=== PATIENT | male | born 1955 | race African-American/Black ===

== ENCOUNTER 2019-03-04 12:27 | Inpatient (IN) | payer MEDICARE, MEDICAID ==
[~2019-03-04] VITALS: Ht 172.7 cm; Wt 78.9 kg
[2019-03-04] MEDS ORDERED: MIRT15TA PO (12:48)
[2019-03-04] MEDS ORDERED: METF-815 PO (12:48)
[2019-03-04] MEDS ORDERED: ALBU18HF2 IH (12:48)
[2019-03-04] MEDS ORDERED: ATOR20TA PO (12:48)
[2019-03-04] MEDS ORDERED: GABA800T97 PO (12:48)
[2019-03-04] MEDS ORDERED: SODIUM CHLORIDE 0.9% 1000ML BAG (SEPSIS BOLUS) IV ONE (13:00)
[2019-03-04] MEDS ORDERED: ALBUTEROL (0.083%) 2.5MG/3ML NEB HHN STA (13:23)
[2019-03-04] MEDS ORDERED: IPRATROPIUM BROMIDE (0.02%) 0.5MG/2.5ML NEB HHN STA (13:23)
[2019-03-04 13:28] LABS: HEMATOCRIT. 39.1 % (42.0-52.0); HEMOGLOBIN. 12.7 g/dL (14.0-18.0); MEAN CORPUSCULAR HEMOGLOBIN 27.4 pg (28.0-32.0); MEAN CORPUSCULAR VOLUME 84.6 fL (80.0-94.0); PLATELET 419 x1000/uL (130-400); RED BLOOD CELL COUNT 4.62 mill/uL (4.7-6.1); RED CELL DISTRIBUTION WIDTH 19.8 % (11.6-14.6)
[2019-03-04 13:34] LABS: CHLORIDE 100 mEq/L (98-107)
[2019-03-04 13:35] LABS: INR 1.2; PROTHROMBIN TIME 12.3 sec (9.6-11.0)
[2019-03-04 13:39] LABS: ETHANOL BLOOD < 10 mg/dL
[2019-03-04] MEDS ORDERED: VANCOMYCIN 1 G PREMIX 200 ML IV ONE (14:00)
[2019-03-04] MEDS ORDERED: PIPERACILLIN/TAZ 3.375G PREMIX 50 ML IV ONE (14:00)
[2019-03-04 14:06] LABS: CLARITY URINE CLEAR (CLEAR); COLOR URINE DARK YELLOW (YELLOW); KETONES URINE 1+ (NEGATIVE); LEUKOCYTE ESTERASE URINE 1+ (NEGATIVE); NITRITE URINE NEGATIVE (NEGATIVE); OCCULT BLOOD URINE NEGATIVE (NEGATIVE); PROTEIN URINE TRACE (NEGATIVE); SPECIFIC GRAVITY URINE 1.016 (1.005-1.030)
[2019-03-04 14:22] LABS: PLATELET ESTIMATE SLIGHTLY INCREASED
[2019-03-04] MEDS: DEXT 5%/0.45% NACL 1000ML 1,000 ML IV SCH (15:30)
[2019-03-04] MEDS ORDERED: PIPERACILLIN/TAZOBACTAM 3.375 G in DEXT 5% WATER 100 ML IV SCH (15:30)
[2019-03-05] VITALS (8 sets, daily range): BP systolic 97–121; BP diastolic 59–81
[2019-03-05 10:00] LABS: HEMATOCRIT. 35.4 % (42.0-52.0); HEMOGLOBIN. 11.5 g/dL (14.0-18.0); MEAN CORPUSCULAR HEMOGLOBIN 27.5 pg (28.0-32.0); MEAN CORPUSCULAR VOLUME 84.5 fL (80.0-94.0); MEAN PLATELET VOLUME 8.1 fl (7.4-10.4); PLATELET 413 x1000/uL (130-400); RED BLOOD CELL COUNT 4.18 mill/uL (4.7-6.1); RED CELL DISTRIBUTION WIDTH 19.6 % (11.6-14.6)
[2019-03-05 10:25] LABS: CHLORIDE 104 mEq/L (98-107)
[2019-03-05 10:41] LABS: *COCAINE SCREEN URINE NEGATIVE (NEGATIVE)
[2019-03-05 10:42] LABS: *AMPHETAMINES SCREEN URINE NEGATIVE (NEGATIVE); *BARBITURATES SCREEN URINE NEGATIVE (NEGATIVE); CANNABINOID URINE SCREEN NEGATIVE (NEGATIVE); METHADONE URINE SCREEN NEGATIVE (NEGATIVE); OPIATES URINE SCREEN NEGATIVE (NEGATIVE); PHENCYCLIDINE URINE SCREEN NEGATIVE (NEGATIVE)
[2019-03-05 10:43] LABS: *BENZODIAZEPINES SCREEN URINE NEGATIVE (NEGATIVE)
[2019-03-05] MEDS ORDERED: PIPERACILLIN/TAZOBACTAM 3.375 G in DEXT 5% WATER 100 ML IV SCH (11:00)
[2019-03-05 13:00] LABS: PLATELET ESTIMATE INCREASED
[2019-03-05] MEDS ORDERED: APIXABAN 5 MG TABLET PO SCH (13:00)
[2019-03-05] MEDS: APIXABAN 5 MG TABLET PO SCH ×2 (13:40→21:10)
[2019-03-05] MEDS: DEXT 5%/0.45% NACL 1000ML 1,000 ML IV SCH (13:41)
[2019-03-05] MEDS: MORPHINE SULFATE 2 MG/ML CPJ (NOT FOR IM USE) IV PRN (13:55)
[2019-03-05] MEDS ORDERED: THEOPHYLLINE ANHYDROUS 80 MG/15 ML 120ML PO SCH ×2 (14:00)
[2019-03-05] MEDS: CEFEPIME 1,000 MG in DEXTROSE 5% WATER 50 ML IV SCH (16:44)
[2019-03-05] MEDS: THEOPHYLLINE ANHYDROUS 80 MG/15 ML 120ML PO SCH ×2 (16:45→21:00)
[2019-03-05] MEDS: METRONIDAZOLE 500 MG PREMIX 100 ML IV SCH (17:50)
[2019-03-05] MEDS: IPRATROPIUM/ALBUTEROL 0.5-3(2.5)MG/3ML NEB HHN PRN (18:17)
[2019-03-06] VITALS (12 sets, daily range): BP systolic 90–113; BP diastolic 52–70
[2019-03-06] MEDS: THEOPHYLLINE ANHYDROUS 80 MG/15 ML 120ML PO SCH ×7 (00:13→22:08)
[2019-03-06] MEDS: ACETYLCYSTEINE 100MG/ML 10% VIAL 4ML INH SCH ×2 (00:31→15:19)
[2019-03-06] MEDS: METRONIDAZOLE 500 MG PREMIX 100 ML IV SCH ×3 (00:55→19:16)
[2019-03-06] MEDS: DEXT 5%/0.45% NACL 1000ML 1,000 ML IV SCH ×3 (03:05→20:13)
[2019-03-06] MEDS: CEFEPIME 1,000 MG in DEXTROSE 5% WATER 50 ML IV SCH ×2 (03:09→16:53)
[2019-03-06 06:49] LABS: HEMATOCRIT. 32.6 % (42.0-52.0); HEMOGLOBIN. 10.8 g/dL (14.0-18.0); MEAN CORPUSCULAR HEMOGLOBIN 27.7 pg (28.0-32.0); MEAN CORPUSCULAR VOLUME 83.7 fL (80.0-94.0); MEAN PLATELET VOLUME 8.1 fl (7.4-10.4); PLATELET 372 x1000/uL (130-400); RED CELL DISTRIBUTION WIDTH 19.5 % (11.6-14.6)
[2019-03-06] MEDS: APIXABAN 5 MG TABLET PO SCH ×2 (09:13→20:12)
[2019-03-06] MEDS: MORPHINE SULFATE 2 MG/ML CPJ (NOT FOR IM USE) IV PRN (09:14)
[2019-03-06] MEDS: IPRATROPIUM/ALBUTEROL 0.5-3(2.5)MG/3ML NEB HHN PRN (09:16)
[2019-03-06 10:54] LABS: PLATELET ESTIMATE NORMAL
[2019-03-06] MEDS ORDERED: [UNRECOGNIZED DRUG - CODE] MT (10:59)
[2019-03-06] MEDS ORDERED: ACETYLCYSTEINE 100MG/ML 10% VIAL 4ML INH SCH (14:00)
[2019-03-06 16:16] LABS: BG CARBOXYHEMOGLOBIN 0.3 % (0.5-1.5); BG DEOXYHEMOGLOBIN 7.7 % (0.0-5.0); BG FRACTION INSPIRED OXYGEN 21; BG METHEMOGLOBIN 0.1 % (0.0-1.5); BG OXYGEN SATURATION 92.3 % (92.0-98.5); BG OXYHEMOGLOBIN 91.9 % (94.0-97.0); BG PCO2 38.8 mmHg (35.0-45.0); BG PH 7.371 (7.350-7.450); BG PO2 66.1 mmHg (75.0-100.0); BG SAMPLE SITE RIGHT RADIAL; BG TOTAL HEMOGLOBIN 11.4 g/dL (12.0-18.0); BG VENT MODE ROOM AIR
[2019-03-07] VITALS (13 sets, daily range): BP systolic 86–106; BP diastolic 43–62
[2019-03-07] MEDS: METRONIDAZOLE 500 MG PREMIX 100 ML IV SCH ×3 (01:46→18:24)
[2019-03-07] MEDS: CEFEPIME 1,000 MG in DEXTROSE 5% WATER 50 ML IV SCH ×2 (03:01→16:06)
[2019-03-07] MEDS: THEOPHYLLINE ANHYDROUS 80 MG/15 ML 120ML PO SCH ×6 (03:01→23:10)
[2019-03-07] MEDS: MORPHINE SULFATE 2 MG/ML CPJ (NOT FOR IM USE) IV PRN (03:39)
[2019-03-07 07:31] LABS: HEMATOCRIT. 32.7 % (42.0-52.0); HEMOGLOBIN. 10.6 g/dL (14.0-18.0); MEAN CORPUSCULAR HEMOGLOBIN 27.2 pg (28.0-32.0); MEAN CORPUSCULAR VOLUME 83.9 fL (80.0-94.0); MEAN PLATELET VOLUME 8.3 fl (7.4-10.4); PLATELET 414 x1000/uL (130-400); RED CELL DISTRIBUTION WIDTH 19.1 % (11.6-14.6)
[2019-03-07] MEDS: APIXABAN 5 MG TABLET PO SCH ×2 (10:01→21:13)
[2019-03-07] MEDS: IPRATROPIUM/ALBUTEROL 0.5-3(2.5)MG/3ML NEB HHN SCH ×3 (10:14→20:54)
[2019-03-07] MEDS: DEXT 5%/0.45% NACL 1000ML 1,000 ML IV SCH (11:33)
[2019-03-07 13:32] LABS: PLATELET ESTIMATE INCREASED
[2019-03-07] MEDS: DEXT 5%/0.45% NACL KCL 20MEQ/L 1,000 ML IV SCH (18:46)
[2019-03-07 23:39] LABS: CLARITY URINE CLEAR (CLEAR); COLOR URINE YELLOW (YELLOW); KETONES URINE NEGATIVE (NEGATIVE); LEUKOCYTE ESTERASE URINE NEGATIVE (NEGATIVE); NITRITE URINE NEGATIVE (NEGATIVE); OCCULT BLOOD URINE NEGATIVE (NEGATIVE); PH URINE 5.5 (4.5-8.0); PROTEIN URINE NEGATIVE (NEGATIVE); SPECIFIC GRAVITY URINE 1.006 (1.005-1.030); UROBILINOGEN URINE 0.2 E.U./dL (0.2-1.0)
[2019-03-08] VITALS (16 sets, daily range): BP systolic 87–128; BP diastolic 41–80
[2019-03-08] MEDS: IPRATROPIUM/ALBUTEROL 0.5-3(2.5)MG/3ML NEB HHN SCH ×6 (00:31→19:54)
[2019-03-08] MEDS: ACETYLCYSTEINE 100MG/ML 10% VIAL 4ML INH SCH ×3 (00:50→15:53)
[2019-03-08] MEDS: DEXT 5%/0.45% NACL KCL 20MEQ/L 1,000 ML IV SCH ×3 (01:58→18:13)
[2019-03-08] MEDS: ACETAMINOPHEN 325MG TABLET PO PRN (01:58)
[2019-03-08] MEDS: METRONIDAZOLE 500 MG PREMIX 100 ML IV SCH ×3 (01:58→18:13)
[2019-03-08] MEDS: THEOPHYLLINE ANHYDROUS 80 MG/15 ML 120ML PO SCH ×6 (02:03→23:44)
[2019-03-08] MEDS: APIXABAN 5 MG TABLET PO SCH ×2 (10:09→20:53)
[2019-03-08] MEDS: MORPHINE SULFATE 2 MG/ML CPJ (NOT FOR IM USE) IV PRN (11:30)
[2019-03-08 11:36] LABS: HEMATOCRIT. 32.5 % (42.0-52.0); HEMOGLOBIN. 10.9 g/dL (14.0-18.0); MEAN CORPUSCULAR HEMOGLOBIN 27.7 pg (28.0-32.0); MEAN CORPUSCULAR VOLUME 82.6 fL (80.0-94.0); MEAN PLATELET VOLUME 8.1 fl (7.4-10.4); PLATELET 408 x1000/uL (130-400); RED BLOOD CELL COUNT 3.93 mill/uL (4.7-6.1); RED CELL DISTRIBUTION WIDTH 19.2 % (11.6-14.6)
[2019-03-08] MEDS ORDERED: POTASSIUM CHLORIDE 20MEQ/PACKET PO NR (12:45)
[2019-03-08 14:18] LABS: PLATELET ESTIMATE SLIGHTLY INCREASED
[2019-03-08] MEDS ORDERED: CEFEPIME 1,000 MG in DEXTROSE 5% WATER 50 ML IV SCH (16:00)
[2019-03-08] MEDS: ONDANSETRON HCL 4MG/2ML INJ IV PRN (21:04)
[2019-03-09] VITALS (12 sets, daily range): BP systolic 87–131; BP diastolic 46–88
[2019-03-09] MEDS: IPRATROPIUM/ALBUTEROL 0.5-3(2.5)MG/3ML NEB HHN SCH ×7 (00:09→20:51)
[2019-03-09] MEDS: ACETYLCYSTEINE 100MG/ML 10% VIAL 4ML INH SCH ×4 (00:09→16:12)
[2019-03-09] MEDS: ACETAMINOPHEN 325MG TABLET PO PRN (00:22)
[2019-03-09] MEDS: METRONIDAZOLE 500 MG PREMIX 100 ML IV SCH ×2 (01:35→09:37)
[2019-03-09] MEDS: DEXT 5%/0.45% NACL KCL 20MEQ/L 1,000 ML IV SCH ×3 (01:35→22:51)
[2019-03-09] MEDS: THEOPHYLLINE ANHYDROUS 80 MG/15 ML 120ML PO SCH ×5 (03:00→22:52)
[2019-03-09] MEDS: ONDANSETRON HCL 4MG/2ML INJ IV PRN ×3 (03:20→20:33)
[2019-03-09 08:09] LABS: HEMATOCRIT. 29.7 % (42.0-52.0); HEMOGLOBIN. 9.8 g/dL (14.0-18.0); MEAN CORPUSCULAR HEMOGLOBIN 27.6 pg (28.0-32.0); MEAN CORPUSCULAR VOLUME 83.3 fL (80.0-94.0); MEAN PLATELET VOLUME 7.8 fl (7.4-10.4); RED BLOOD CELL COUNT 3.56 mill/uL (4.7-6.1); RED CELL DISTRIBUTION WIDTH 19.7 % (11.6-14.6)
[2019-03-09 09:10] LABS: *CREATININE RANDOM URINE 100.4 mg/dL (Not Estab.); MICROALBUMIN RANDOM URINE 8.5 ug/mL (Not Estab.)
[2019-03-09] MEDS: APIXABAN 5 MG TABLET PO SCH ×2 (09:37→21:00)
[2019-03-09] MEDS ORDERED: APIX5TAB PO (12:22)
[2019-03-09 12:32] LABS: PLATELET ESTIMATE NORMAL
[2019-03-09 12:33] LABS: PLATELET 388 x1000/uL (130-400)
[2019-03-09] MEDS ORDERED: OMEPRAZOLE 20MG CAPSULE EXTENDED RELEASE PO SCH (17:00)
[2019-03-09] MEDS ORDERED: SODIUM CHLORIDE 0.9% 500 ML IV ONE ×2 (19:10→19:20)
[2019-03-09] MEDS: MORPHINE SULFATE 2 MG/ML CPJ (NOT FOR IM USE) IV PRN (20:19)
[2019-03-09 22:11] LABS: HEMATOCRIT. 32.9 % (42.0-52.0); MEAN CORPUSCULAR HEMOGLOBIN 27.8 pg (28.0-32.0); MEAN PLATELET VOLUME 7.7 fl (7.4-10.4); PLATELET 404 x1000/uL (130-400); RED BLOOD CELL COUNT 3.96 mill/uL (4.7-6.1); RED CELL DISTRIBUTION WIDTH 20.1 % (11.6-14.6)
[2019-03-09] MEDS: PANTOPRAZOLE 80 MG in SODIUM CHLORIDE 0.9% 100 ML IV SCH (22:50)
[2019-03-09 23:24] LABS: PLATELET ESTIMATE NORMAL
[2019-03-10] VITALS (12 sets, daily range): BP systolic 82–130; BP diastolic 46–68
[2019-03-10] MEDS: IPRATROPIUM/ALBUTEROL 0.5-3(2.5)MG/3ML NEB HHN SCH ×5 (04:50→20:58)
[2019-03-10] MEDS: DEXT 5%/0.45% NACL KCL 20MEQ/L 1,000 ML IV SCH ×2 (05:12→16:35)
[2019-03-10] MEDS: THEOPHYLLINE ANHYDROUS 80 MG/15 ML 120ML PO SCH ×2 (05:21→06:34)
[2019-03-10 07:11] LABS: HEMATOCRIT. 30.1 % (42.0-52.0); HEMOGLOBIN. 9.9 g/dL (14.0-18.0); MEAN CORPUSCULAR HEMOGLOBIN 27.7 pg (28.0-32.0); MEAN CORPUSCULAR VOLUME 84.1 fL (80.0-94.0); PLATELET 363 x1000/uL (130-400); RED BLOOD CELL COUNT 3.57 mill/uL (4.7-6.1)
[2019-03-10] MEDS ORDERED: SODIUM CHLORIDE 0.9% 500 ML IV SCH (08:30)
[2019-03-10] MEDS: PANTOPRAZOLE 80 MG in SODIUM CHLORIDE 0.9% 100 ML IV SCH ×2 (08:34→18:33)
[2019-03-10 11:07] LABS: ATYPICAL LYMPHOCYTES 3; NUCLEATED RED BLOOD CELLS 1 /100 WBC
[2019-03-10 11:08] LABS: PLATELET ESTIMATE NORMAL
[2019-03-10] MEDS: CARBIDOPA/LEVODOPA 25/250MG TABLET PO SCH ×3 (13:11→23:21)
[2019-03-10 14:40] LABS: HEMATOCRIT. 32.8 % (42.0-52.0); HEMOGLOBIN. 10.9 g/dL (14.0-18.0); MEAN CORPUSCULAR HEMOGLOBIN 27.8 pg (28.0-32.0); MEAN CORPUSCULAR VOLUME 84.1 fL (80.0-94.0); PLATELET 373 x1000/uL (130-400); RED BLOOD CELL COUNT 3.91 mill/uL (4.7-6.1); RED CELL DISTRIBUTION WIDTH 20.1 % (11.6-14.6)
[2019-03-10 15:55] LABS: PLATELET ESTIMATE NORMAL
[2019-03-10] MEDS: ACETYLCYSTEINE 100MG/ML 10% VIAL 4ML INH SCH (16:05)
[2019-03-10] MEDS: CEFEPIME 1,000 MG in DEXTROSE 5% WATER 50 ML IV SCH (16:35)
[2019-03-10] MEDS: DIGOXIN 500MCG/2ML AMP IV SCH (18:34)
[2019-03-10] MEDS ORDERED: SODIUM CHLORIDE 0.9% 500 ML IV NR (19:15)
[2019-03-10] MEDS ORDERED: SODIUM CHLORIDE 0.9% 1000ML BAG (SEPSIS BOLUS) IV ONE (19:15)
[2019-03-10] MEDS ORDERED: DILTIAZEM HCL 5MG/ML 5ML VIAL IV ONE (23:45)
[2019-03-11] VITALS (64 sets, daily range): BP systolic 62–159; BP diastolic 29–91
[2019-03-11] MEDS: ACETYLCYSTEINE 100MG/ML 10% VIAL 4ML INH SCH (00:09)
[2019-03-11] MEDS: IPRATROPIUM/ALBUTEROL 0.5-3(2.5)MG/3ML NEB HHN SCH ×5 (00:10→20:05)
[2019-03-11] MEDS ORDERED: DILTIAZEM HCL 125 MG in DEXT 5% WATER 100 ML IV SCH (00:30)
[2019-03-11] MEDS: DEXT 5%/0.45% NACL KCL 20MEQ/L 1,000 ML IV SCH (01:12)
[2019-03-11] MEDS: ONDANSETRON HCL 4MG/2ML INJ IV PRN (02:37)
[2019-03-11] MEDS: MORPHINE SULFATE 2 MG/ML CPJ (NOT FOR IM USE) IV PRN (02:38)
[2019-03-11] MEDS: CEFEPIME 1,000 MG in DEXTROSE 5% WATER 50 ML IV SCH (04:15)
[2019-03-11 06:22] LABS: HEMATOCRIT. 32.4 % (42.0-52.0); HEMOGLOBIN. 10.6 g/dL (14.0-18.0); MEAN CORPUSCULAR HEMOGLOBIN 27.5 pg (28.0-32.0); MEAN CORPUSCULAR VOLUME 84.4 fL (80.0-94.0); MEAN PLATELET VOLUME 8.4 fl (7.4-10.4); PLATELET 330 x1000/uL (130-400); RED BLOOD CELL COUNT 3.84 mill/uL (4.7-6.1); RED CELL DISTRIBUTION WIDTH 20.1 % (11.6-14.6)
[2019-03-11] MEDS: CARBIDOPA/LEVODOPA 25/250MG TABLET PO SCH ×3 (07:27→22:07)
[2019-03-11] MEDS ORDERED: NOREPINEPHRINE 4MG/250ML PMX 250 ML IV ONE (08:15)
[2019-03-11] MEDS ORDERED: DEXTROSE 50% WATER 50ML SYRINGE IV ONE ×2 (08:15→08:45)
[2019-03-11 08:27] LABS: BG BASE EXCESS -9.4 mmol/L (-2.0-2.0); BG CARBOXYHEMOGLOBIN 0.3 % (0.5-1.5); BG DEOXYHEMOGLOBIN 9.9 % (0.0-5.0); BG FRACTION INSPIRED OXYGEN 36; BG HCO3 ACT 23.2 mmol/L (22.0-26.0); BG METHEMOGLOBIN 0.3 % (0.0-1.5); BG OXYHEMOGLOBIN 89.5 % (94.0-97.0); BG PCO2 99.9 mmHg (35.0-45.0); BG PH 6.984 (7.350-7.450); BG PO2 82.2 mmHg (75.0-100.0); BG SAMPLE SITE RIGHT RADIAL; BG TOTAL HEMOGLOBIN 10.4 g/dL (12.0-18.0); BG VENT MODE NASAL CANNULA
[2019-03-11] MEDS ORDERED: NOREPINEPHRINE 4MG/250ML PMX 250 ML IV PRN (08:30)
[2019-03-11] MEDS ORDERED: INSULIN REGULAR (HUMULIN R) 300UNITS/3ML SUBCUT ONE (08:45)
[2019-03-11] MEDS ORDERED: NOREPINEPHRINE 4MG in DEXT 5% WATER 250ML IV PRN (08:45)
[2019-03-11] MEDS ORDERED: DEXTROSE 50% WATER 50ML SYRINGE IV SCH (09:00)
[2019-03-11] MEDS ORDERED: INSULIN REGULAR (HUMULIN R) UD 100 UNITS/ML SYR IV SCH (09:00)
[2019-03-11] MEDS: PROPOFOL 10MG/ML 100ML 100 ML IV PRN ×2 (09:02→18:42)
[2019-03-11 09:04] LABS: PLATELET ESTIMATE NORMAL
[2019-03-11 09:44] LABS: BG BASE EXCESS -10.9 mmol/L (-2.0-2.0); BG CARBOXYHEMOGLOBIN 0.2 % (0.5-1.5); BG DEOXYHEMOGLOBIN 0.5 % (0.0-5.0); BG FRACTION INSPIRED OXYGEN 100; BG HCO3 ACT 18.7 mmol/L (22.0-26.0); BG METHEMOGLOBIN 0.3 % (0.0-1.5); BG OXYGEN SATURATION 99.5 % (92.0-98.5); BG PCO2 60.5 mmHg (35.0-45.0); BG PH 7.108 (7.350-7.450); BG SAMPLE SITE RIGHT RADIAL; BG TIDAL VOLUME(mL) 500 mL; BG TOTAL HEMOGLOBIN 10.8 g/dL (12.0-18.0); BG VENT MODE VENT - A/C; BG VENT RATE 16 set
[2019-03-11] MEDS ORDERED: LIDOCAINE HCL 1% 20ML VIAL (Pyxis) INJ ONE (10:00)
[2019-03-11] MEDS ORDERED: VANCOMYCIN 2,000 MG in DEXT 5% WATER 500 ML IV SCH (10:00)
[2019-03-11 10:21] LABS: INR 1.4; PROTHROMBIN TIME 14.6 sec (9.6-11.0)
[2019-03-11] MEDS: BLOOD SUGAR DIAGNOSTIC STRIP TEST SCH ×4 (11:41→23:47)
[2019-03-11] MEDS: PANTOPRAZOLE 80 MG in SODIUM CHLORIDE 0.9% 100 ML IV SCH ×2 (11:41→19:46)
[2019-03-11] MEDS: METHYLPREDNISOLONE SOD SUCC 40 MG/ML VIAL IV SCH ×2 (11:41→17:49)
[2019-03-11] MEDS: PIPERACILLIN/TAZOBACTAM 3.375 G in DEXT 5% WATER 100 ML IV SCH ×3 (11:41→23:52)
[2019-03-11] MEDS ORDERED: SODIUM POLYSTYRENE SULFONATE 15 G/60 ML BOT PO SCH (15:00)
[2019-03-11] MEDS ORDERED: SORBITOL 70% SOLN 30ML PO ONE (15:00)
[2019-03-11] MEDS: DIGOXIN 500MCG/2ML AMP IV SCH (17:49)
[2019-03-11] MEDS: INSULIN LISPRO 100 UNITS/ML SUBCUT SCH ×2 (17:53→23:53)
[2019-03-12] VITALS (95 sets, daily range): BP systolic 99–142; BP diastolic 57–98
[2019-03-12] MEDS: IPRATROPIUM/ALBUTEROL 0.5-3(2.5)MG/3ML NEB HHN SCH ×7 (00:10→23:52)
[2019-03-12] MEDS: METHYLPREDNISOLONE SOD SUCC 40 MG/ML VIAL IV SCH ×3 (01:51→17:56)
[2019-03-12] MEDS: PROPOFOL 10MG/ML 100ML 100 ML IV PRN ×4 (01:52→17:59)
[2019-03-12] MEDS: PANTOPRAZOLE 80 MG in SODIUM CHLORIDE 0.9% 100 ML IV SCH ×3 (05:15→23:07)
[2019-03-12 06:18] LABS: HEMATOCRIT. 30.7 % (42.0-52.0); HEMOGLOBIN. 10.3 g/dL (14.0-18.0); MEAN CORPUSCULAR VOLUME 83.5 fL (80.0-94.0); MEAN PLATELET VOLUME 7.8 fl (7.4-10.4); PLATELET 338 x1000/uL (130-400); RED BLOOD CELL COUNT 3.68 mill/uL (4.7-6.1); RED CELL DISTRIBUTION WIDTH 20.5 % (11.6-14.6)
[2019-03-12 06:29] LABS: CHLORIDE 115 mEq/L (98-107)
[2019-03-12 06:35] LABS: PHOSPHORUS 3.8 mg/dL (2.5-4.9)
[2019-03-12] MEDS: INSULIN LISPRO 100 UNITS/ML SUBCUT SCH ×3 (06:41→17:58)
[2019-03-12] MEDS: PIPERACILLIN/TAZOBACTAM 3.375 G in DEXT 5% WATER 100 ML IV SCH ×4 (06:41→23:09)
[2019-03-12] MEDS: BLOOD SUGAR DIAGNOSTIC STRIP TEST SCH ×3 (06:42→17:44)
[2019-03-12] MEDS: CARBIDOPA/LEVODOPA 25/250MG TABLET PO SCH ×3 (06:42→22:27)
[2019-03-12 06:55] LABS: DIGOXIN 0.4 ng/mL (0.9-2.0)
[2019-03-12] MEDS ORDERED: NOREPINEPHRINE 4 MG in DEXT 5% WATER 246 ML IV PRN (07:32)
[2019-03-12 07:57] LABS: PLATELET ESTIMATE NORMAL
[2019-03-12] MEDS: DOCUSATE SODIUM SUGAR FREE 100MG/10ML UDC NG SCH ×2 (08:35→17:55)
[2019-03-12 08:52] LABS: BG BASE EXCESS -3.7 mmol/L (-2.0-2.0); BG CARBOXYHEMOGLOBIN 0.3 % (0.5-1.5); BG FRACTION INSPIRED OXYGEN 40; BG HCO3 ACT 19.9 mmol/L (22.0-26.0); BG METHEMOGLOBIN 0.3 % (0.0-1.5); BG OXYHEMOGLOBIN 97.4 % (94.0-97.0); BG PH 7.425 (7.350-7.450); BG PO2 117.3 mmHg (75.0-100.0); BG SAMPLE SITE RIGHT RADIAL; BG TIDAL VOLUME(mL) 550 mL; BG TOTAL HEMOGLOBIN 10.5 g/dL (12.0-18.0); BG VENT MODE VENT - A/C; BG VENT RATE 20 set
[2019-03-12] MEDS ORDERED: MAGNESIUM 2 G PREMIX 50 ML IV SCH (09:00)
[2019-03-12] MEDS ORDERED: FERR325T6 MT (11:17)
[2019-03-12] MEDS ORDERED: MIRA25TA PO (11:17)
[2019-03-12] MEDS ORDERED: DUTA0.5C2 PO (11:17)
[2019-03-12] MEDS ORDERED: INSU100I19 SQ (11:17)
[2019-03-12] MEDS ORDERED: INSU100I33 SQ (11:17)
[2019-03-12] MEDS ORDERED: CYCL10TA7 PO (11:17)
[2019-03-12] MEDS ORDERED: ERGO500013 MT (11:17)
[2019-03-12] MEDS ORDERED: METO-396 MT (11:17)
[2019-03-12] MEDS ORDERED: LINA145C MT (11:17)
[2019-03-12] MEDS ORDERED: ASPI-1497 PO (11:17)
[2019-03-12] MEDS ORDERED: AMAN100C16 PO (11:17)
[2019-03-12] MEDS ORDERED: STAR120 MT (11:17)
[2019-03-12] MEDS ORDERED: MONT10TA24 MT (11:17)
[2019-03-12] MEDS ORDERED: DOXA2TAB2 MT (11:17)
[2019-03-12] MEDS ORDERED: ROFL500T MT (11:17)
[2019-03-12] MEDS ORDERED: NITR0.4T49 SL (11:17)
[2019-03-12] MEDS: VANCOMYCIN 1 G PREMIX 200 ML IV SCH (12:17)
[2019-03-12] MEDS: DIGOXIN 500MCG/2ML AMP IV SCH (17:56)
[2019-03-12] MEDS: INSULIN GLARGINE UD 100 UNITS/ML SYR SUBCUT SCH (22:27)
[2019-03-13] VITALS (97 sets, daily range): BP systolic 121–159; BP diastolic 60–103
[2019-03-13] MEDS: BLOOD SUGAR DIAGNOSTIC STRIP TEST SCH ×4 (00:10→17:33)
[2019-03-13] MEDS: INSULIN LISPRO 100 UNITS/ML SUBCUT SCH ×4 (00:14→17:34)
[2019-03-13] MEDS: PROPOFOL 10MG/ML 100ML 100 ML IV PRN ×2 (00:14→06:03)
[2019-03-13] MEDS: METHYLPREDNISOLONE SOD SUCC 40 MG/ML VIAL IV SCH ×3 (02:17→17:33)
[2019-03-13] MEDS: IPRATROPIUM/ALBUTEROL 0.5-3(2.5)MG/3ML NEB HHN SCH ×5 (04:30→20:09)
[2019-03-13 06:02] LABS: HEMATOCRIT. 29.5 % (42.0-52.0); HEMOGLOBIN. 9.2 g/dL (14.0-18.0); MEAN CORPUSCULAR HEMOGLOBIN 25.8 pg (28.0-32.0); MEAN CORPUSCULAR VOLUME 82.9 fL (80.0-94.0); MEAN PLATELET VOLUME 7.9 fl (7.4-10.4); PLATELET 370 x1000/uL (130-400); RED BLOOD CELL COUNT 3.55 mill/uL (4.7-6.1); RED CELL DISTRIBUTION WIDTH 20.2 % (11.6-14.6)
[2019-03-13 06:13] LABS: CHLORIDE 115 mEq/L (98-107)
[2019-03-13 06:19] LABS: PHOSPHORUS 3.4 mg/dL (2.5-4.9)
[2019-03-13 06:20] LABS: LDL CHOLESTEROL 35 mg/dL (5-100)
[2019-03-13 06:22] LABS: HDL CHOLESTEROL 9 mg/dL (40-59)
[2019-03-13] MEDS: VANCOMYCIN 1 G PREMIX 200 ML IV SCH (06:40)
[2019-03-13] MEDS: PIPERACILLIN/TAZOBACTAM 3.375 G in DEXT 5% WATER 100 ML IV SCH (06:40)
[2019-03-13] MEDS: CARBIDOPA/LEVODOPA 25/250MG TABLET PO SCH ×3 (06:40→22:38)
[2019-03-13 07:33] LABS: PLATELET ESTIMATE NORMAL
[2019-03-13 07:46] LABS: BG BASE EXCESS -2.1 mmol/L (-2.0-2.0); BG CARBOXYHEMOGLOBIN 0.3 % (0.5-1.5); BG DEOXYHEMOGLOBIN 1.8 % (0.0-5.0); BG FRACTION INSPIRED OXYGEN 35; BG HCO3 ACT 21.9 mmol/L (22.0-26.0); BG METHEMOGLOBIN 0.1 % (0.0-1.5); BG OXYGEN SATURATION 98.2 % (92.0-98.5); BG OXYHEMOGLOBIN 97.8 % (94.0-97.0); BG PCO2 34.4 mmHg (35.0-45.0); BG PH 7.422 (7.350-7.450); BG PO2 126.5 mmHg (75.0-100.0); BG SAMPLE SITE RIGHT RADIAL; BG TIDAL VOLUME(mL) 550 mL; BG TOTAL HEMOGLOBIN 10.2 g/dL (12.0-18.0); BG VENT MODE VENT - A/C; BG VENT RATE 20 set
[2019-03-13] MEDS: DOCUSATE SODIUM SUGAR FREE 100MG/10ML UDC NG SCH ×2 (09:28→17:33)
[2019-03-13] MEDS: PIPERACILLIN/TAZOBACTAM 2.25 G in DEXTROSE 5% WATER 50 ML IV SCH ×2 (11:59→17:33)
[2019-03-13] MEDS: FENTANYL CITRATE/PF 500 MCG in SODIUM CHLORIDE 0.9% 40 ML IV PRN ×2 (12:01→18:49)
[2019-03-13] MEDS ORDERED: CLONIDINE 0.1MG TABLET PO PRN (12:45)
[2019-03-13] MEDS: PANTOPRAZOLE 80 MG in SODIUM CHLORIDE 0.9% 100 ML IV SCH (16:39)
[2019-03-13] MEDS: DIGOXIN 500MCG/2ML AMP IV SCH (17:33)
[2019-03-13] MEDS: LORAZEPAM 2MG/ML CPJ IV PRN (17:44)
[2019-03-13] MEDS: INSULIN GLARGINE UD 100 UNITS/ML SYR SUBCUT SCH (22:38)
[2019-03-14] VITALS (92 sets, daily range): BP systolic 115–161; BP diastolic 64–112
[2019-03-14] MEDS: IPRATROPIUM/ALBUTEROL 0.5-3(2.5)MG/3ML NEB HHN SCH ×6 (00:13→20:14)
[2019-03-14] MEDS: PIPERACILLIN/TAZOBACTAM 2.25 G in DEXTROSE 5% WATER 50 ML IV SCH ×4 (00:57→17:33)
[2019-03-14] MEDS: BLOOD SUGAR DIAGNOSTIC STRIP TEST SCH ×6 (00:57→17:25)
[2019-03-14] MEDS: INSULIN LISPRO 100 UNITS/ML SUBCUT SCH ×4 (00:57→17:34)
[2019-03-14] MEDS: PANTOPRAZOLE 80 MG in SODIUM CHLORIDE 0.9% 100 ML IV SCH ×3 (01:07→22:04)
[2019-03-14] MEDS: METHYLPREDNISOLONE SOD SUCC 40 MG/ML VIAL IV SCH ×3 (01:07→17:34)
[2019-03-14] MEDS: LORAZEPAM 2MG/ML CPJ IV PRN ×2 (01:07→22:53)
[2019-03-14] MEDS: FENTANYL CITRATE/PF 500 MCG in SODIUM CHLORIDE 0.9% 40 ML IV PRN (01:08)
[2019-03-14 05:13] LABS: HEMATOCRIT. 29.1 % (42.0-52.0); HEMOGLOBIN. 9.6 g/dL (14.0-18.0); MEAN CORPUSCULAR HEMOGLOBIN 27.5 pg (28.0-32.0); MEAN CORPUSCULAR VOLUME 83.5 fL (80.0-94.0); MEAN PLATELET VOLUME 7.7 fl (7.4-10.4); PLATELET 349 x1000/uL (130-400); RED BLOOD CELL COUNT 3.48 mill/uL (4.7-6.1); RED CELL DISTRIBUTION WIDTH 20.3 % (11.6-14.6)
[2019-03-14] MEDS: VANCOMYCIN 1 G PREMIX 200 ML IV SCH (05:39)
[2019-03-14] MEDS: CARBIDOPA/LEVODOPA 25/250MG TABLET PO SCH ×3 (05:39→22:00)
[2019-03-14 05:52] LABS: CHLORIDE 116 mEq/L (98-107)
[2019-03-14 06:07] LABS: PHOSPHORUS 3.6 mg/dL (2.5-4.9)
[2019-03-14 06:08] LABS: LDL CHOLESTEROL 45 mg/dL (5-100)
[2019-03-14 06:10] LABS: HDL CHOLESTEROL 13 mg/dL (40-59)
[2019-03-14 08:23] LABS: PLATELET ESTIMATE NORMAL
[2019-03-14 08:44] LABS: BG BASE EXCESS -0.8 mmol/L (-2.0-2.0); BG CARBOXYHEMOGLOBIN 0.2 % (0.5-1.5); BG DEOXYHEMOGLOBIN 4.5 % (0.0-5.0); BG FRACTION INSPIRED OXYGEN 40; BG HCO3 ACT 24.7 mmol/L (22.0-26.0); BG METHEMOGLOBIN 0.3 % (0.0-1.5); BG OXYGEN SATURATION 95.5 % (92.0-98.5); BG PCO2 44.4 mmHg (35.0-45.0); BG PH 7.363 (7.350-7.450); BG PO2 82.3 mmHg (75.0-100.0); BG SAMPLE SITE RIGHT RADIAL; BG TIDAL VOLUME(mL) 550 mL; BG TOTAL HEMOGLOBIN 9.7 g/dL (12.0-18.0); BG VENT MODE VENT - A/C; BG VENT RATE 16 set
[2019-03-14] MEDS: DOCUSATE SODIUM SUGAR FREE 100MG/10ML UDC NG SCH ×2 (10:10→17:33)
[2019-03-14 13:34] LABS: BG BASE EXCESS -0.4 mmol/L (-2.0-2.0); BG CARBOXYHEMOGLOBIN 0.3 % (0.5-1.5); BG DEOXYHEMOGLOBIN 3.8 % (0.0-5.0); BG FRACTION INSPIRED OXYGEN 40; BG HCO3 ACT 25.5 mmol/L (22.0-26.0); BG METHEMOGLOBIN 0.2 % (0.0-1.5); BG OXYGEN SATURATION 96.2 % (92.0-98.5); BG OXYHEMOGLOBIN 95.7 % (94.0-97.0); BG PCO2 47.4 mmHg (35.0-45.0); BG PH 7.349 (7.350-7.450); BG PO2 94.7 mmHg (75.0-100.0); BG PRESSURE SUPPORT 8; BG SAMPLE SITE RIGHT RADIAL; BG TOTAL HEMOGLOBIN 10.6 g/dL (12.0-18.0); BG VENT MODE VENT - CPAP
[2019-03-14] MEDS: DIGOXIN 500MCG/2ML AMP IV SCH (17:34)
[2019-03-14] MEDS: INSULIN GLARGINE UD 100 UNITS/ML SYR SUBCUT SCH (22:04)
[2019-03-15] VITALS (55 sets, daily range): BP systolic 101–180; BP diastolic 60–124
[2019-03-15] MEDS: BLOOD SUGAR DIAGNOSTIC STRIP TEST SCH ×4 (00:05→18:00)
[2019-03-15] MEDS: INSULIN LISPRO 100 UNITS/ML SUBCUT SCH ×4 (00:05→19:28)
[2019-03-15] MEDS: PIPERACILLIN/TAZOBACTAM 2.25 G in DEXTROSE 5% WATER 50 ML IV SCH ×3 (00:05→11:25)
[2019-03-15] MEDS: ONDANSETRON HCL 4MG/2ML INJ IV PRN (00:06)
[2019-03-15] MEDS: IPRATROPIUM/ALBUTEROL 0.5-3(2.5)MG/3ML NEB HHN SCH ×5 (00:28→21:51)
[2019-03-15] MEDS: METHYLPREDNISOLONE SOD SUCC 40 MG/ML VIAL IV SCH ×2 (02:48→09:48)
[2019-03-15] MEDS: CARBIDOPA/LEVODOPA 25/250MG TABLET PO SCH ×3 (05:21→21:54)
[2019-03-15] MEDS: VANCOMYCIN 1 G PREMIX 200 ML IV SCH (05:21)
[2019-03-15 05:40] LABS: BASOPHILS % 0.2 % (0.0-2.0); HEMATOCRIT. 30.6 % (42.0-52.0); HEMOGLOBIN. 10.1 g/dL (14.0-18.0); LYMPHOCYTES % 8.2 % (20.0-50.0); MEAN CORPUSCULAR HEMOGLOBIN 27.6 pg (28.0-32.0); MEAN CORPUSCULAR VOLUME 83.6 fL (80.0-94.0); MEAN PLATELET VOLUME 7.8 fl (7.4-10.4); MONOCYTES % 7.9 % (2.0-8.0); NEUTROPHILS % 83.7 % (40.0-76.0); PLATELET 346 x1000/uL (130-400); RED BLOOD CELL COUNT 3.66 mill/uL (4.7-6.1); RED CELL DISTRIBUTION WIDTH 20.1 % (11.6-14.6)
[2019-03-15 05:51] LABS: CHLORIDE 120 mEq/L (98-107)
[2019-03-15 06:01] LABS: PHOSPHORUS 2.7 mg/dL (2.5-4.9)
[2019-03-15] MEDS: PANTOPRAZOLE 80 MG in SODIUM CHLORIDE 0.9% 100 ML IV SCH ×2 (06:20→19:27)
[2019-03-15] MEDS: BUDESONIDE 0.5MG/2ML NEB HHN SCH ×2 (09:05→21:51)
[2019-03-15] MEDS: DOCUSATE SODIUM SUGAR FREE 100MG/10ML UDC NG SCH ×2 (09:48→19:26)
[2019-03-15] MEDS: DIGOXIN 500MCG/2ML AMP IV SCH (19:26)
[2019-03-15] MEDS: PIPERACILLIN/TAZOBACTAM 3.375 G in DEXT 5% WATER 100 ML IV SCH (19:27)
[2019-03-15] MEDS: INSULIN GLARGINE UD 100 UNITS/ML SYR SUBCUT SCH (21:55)
[2019-03-16] VITALS (12 sets, daily range): BP systolic 122–177; BP diastolic 69–94
[2019-03-16] MEDS: IPRATROPIUM/ALBUTEROL 0.5-3(2.5)MG/3ML NEB HHN SCH ×6 (00:54→21:08)
[2019-03-16] MEDS: PIPERACILLIN/TAZOBACTAM 3.375 G in DEXT 5% WATER 100 ML IV SCH ×4 (00:56→17:33)
[2019-03-16] MEDS: BLOOD SUGAR DIAGNOSTIC STRIP TEST SCH ×4 (00:58→18:07)
[2019-03-16] MEDS: CARBIDOPA/LEVODOPA 25/250MG TABLET PO SCH ×3 (05:28→21:40)
[2019-03-16] MEDS: INSULIN LISPRO 100 UNITS/ML SUBCUT SCH ×4 (06:00→18:06)
[2019-03-16] MEDS: DEXTROSE 50% WATER 50ML SYRINGE IV PRN (06:24)
[2019-03-16] MEDS: PANTOPRAZOLE 80 MG in SODIUM CHLORIDE 0.9% 100 ML IV SCH ×2 (06:25→21:41)
[2019-03-16] MEDS: VANCOMYCIN 1 G PREMIX 200 ML IV SCH (06:37)
[2019-03-16 06:45] LABS: BASOPHILS % 0.4 % (0.0-2.0); LYMPHOCYTES % 26.4 % (20.0-50.0); MEAN CORPUSCULAR HEMOGLOBIN 29.8 pg (28.0-32.0); MEAN CORPUSCULAR VOLUME 83.3 fL (80.0-94.0); MONOCYTES % 11.8 % (2.0-8.0); NEUTROPHILS % 60.4 % (40.0-76.0); PLATELET 285 x1000/uL (130-400); RED BLOOD CELL COUNT 3.36 mill/uL (4.7-6.1); RED CELL DISTRIBUTION WIDTH 19.7 % (11.6-14.6)
[2019-03-16 07:22] LABS: VITAMIN B12 SERUM 1009 pg/mL (211-911)
[2019-03-16 07:28] LABS: CHLORIDE 111 mEq/L (98-107)
[2019-03-16 07:41] LABS: PHOSPHORUS 1.8 mg/dL (2.5-4.9)
[2019-03-16] MEDS: DOCUSATE SODIUM SUGAR FREE 100MG/10ML UDC NG SCH ×3 (08:41→17:32)
[2019-03-16] MEDS: PREDNISONE 20MG TABLET PO SCH (08:41)
[2019-03-16] MEDS ORDERED: POTASSIUM CHLORIDE INJ 40 MEQ in DEXT 5% WATER 250 ML IV SCH (10:00)
[2019-03-16] MEDS ORDERED: POTASSIUM PHOS,M-BASIC-D-BASIC 20 MMOL in DEXT 5% WATER 243.3333 ML IV NR (10:15)
[2019-03-16] MEDS ORDERED: SIMETHICONE 80MG TABLET CHEW PO PRN (10:15)
[2019-03-16] MEDS ORDERED: NA PHOS,M-B/NA PHOS,DI-BA ENEMA 118ML PR PRN (10:15)
[2019-03-16] MEDS ORDERED: POTASSIUM CHLORIDE 20MEQ TABLET SR PO NR (10:15)
[2019-03-16] MEDS ORDERED: MAGNESIUM 2 G PREMIX 50 ML IV NR (10:15)
[2019-03-16] MEDS: DIGOXIN 500MCG/2ML AMP IV SCH (17:35)
[2019-03-16] MEDS: BUDESONIDE 0.5MG/2ML NEB HHN SCH (21:08)
[2019-03-16] MEDS: INSULIN GLARGINE UD 100 UNITS/ML SYR SUBCUT SCH (21:40)
[2019-03-17] VITALS (12 sets, daily range): BP systolic 120–151; BP diastolic 58–91
[2019-03-17] MEDS: IPRATROPIUM/ALBUTEROL 0.5-3(2.5)MG/3ML NEB HHN SCH ×6 (00:42→21:41)
[2019-03-17] MEDS: BLOOD SUGAR DIAGNOSTIC STRIP TEST SCH ×5 (05:18→23:24)
[2019-03-17] MEDS: PIPERACILLIN/TAZOBACTAM 3.375 G in DEXT 5% WATER 100 ML IV SCH ×5 (05:18→23:25)
[2019-03-17] MEDS: INSULIN LISPRO 100 UNITS/ML SUBCUT SCH ×4 (05:19→18:00)
[2019-03-17] MEDS: CARBIDOPA/LEVODOPA 25/250MG TABLET PO SCH ×3 (05:21→21:29)
[2019-03-17 06:19] LABS: BASOPHILS % 0.1 % (0.0-2.0); EOSINOPHILS % 1.3 % (0.0-5.0); HEMATOCRIT. 29.1 % (42.0-52.0); HEMOGLOBIN. 10.1 g/dL (14.0-18.0); LYMPHOCYTES % 22.1 % (20.0-50.0); MEAN CORPUSCULAR HEMOGLOBIN 28.5 pg (28.0-32.0); MEAN PLATELET VOLUME 8.2 fl (7.4-10.4); MONOCYTES % 11.5 % (2.0-8.0); PLATELET 293 x1000/uL (130-400); RED BLOOD CELL COUNT 3.55 mill/uL (4.7-6.1); RED CELL DISTRIBUTION WIDTH 19.4 % (11.6-14.6)
[2019-03-17] MEDS: VANCOMYCIN 1250MG in DEXTROSE 5% WATER 250ML IV SCH (06:48)
[2019-03-17 07:32] LABS: CHLORIDE 106 mEq/L (98-107)
[2019-03-17 07:38] LABS: PHOSPHORUS 2.6 mg/dL (2.5-4.9)
[2019-03-17] MEDS: BUDESONIDE 0.5MG/2ML NEB HHN SCH ×2 (08:19→21:41)
[2019-03-17] MEDS: DOCUSATE SODIUM SUGAR FREE 100MG/10ML UDC NG SCH ×2 (08:43→18:26)
[2019-03-17] MEDS: PREDNISONE 20MG TABLET PO SCH (08:43)
[2019-03-17] MEDS ORDERED: CARVEDILOL 3.125 MG TABLET PO SCH (11:00)
[2019-03-17] MEDS ORDERED: KCL 20MEQ/100ML PREMIX 100 ML IV SCH (13:00)
[2019-03-17] MEDS: MONTELUKAST SODIUM 10MG TABLET PO SCH (18:27)
[2019-03-17] MEDS: DIGOXIN 500MCG/2ML AMP IV SCH (18:28)
[2019-03-17] MEDS: ACETAMINOPHEN 325MG TABLET PO PRN (21:29)
[2019-03-17] MEDS: FLUTICASONE PROPIONATE 50MCG/SPRAY BOTTLE BOTHNSTRLS SCH (21:42)
[2019-03-17] MEDS: INSULIN GLARGINE UD 100 UNITS/ML SYR SUBCUT SCH (23:30)
[2019-03-18] VITALS (17 sets, daily range): BP systolic 109–159; BP diastolic 52–88
[2019-03-18] MEDS: IPRATROPIUM/ALBUTEROL 0.5-3(2.5)MG/3ML NEB HHN SCH ×6 (01:40→20:20)
[2019-03-18 05:00] LABS: BASOPHILS % 0.1 % (0.0-2.0); EOSINOPHILS % 7.8 % (0.0-5.0); HEMATOCRIT. 29.9 % (42.0-52.0); HEMOGLOBIN. 10.2 g/dL (14.0-18.0); LYMPHOCYTES % 27.4 % (20.0-50.0); MEAN CORPUSCULAR HEMOGLOBIN 27.7 pg (28.0-32.0); MEAN CORPUSCULAR VOLUME 81.1 fL (80.0-94.0); MEAN PLATELET VOLUME 8.2 fl (7.4-10.4); MONOCYTES % 13.1 % (2.0-8.0); NEUTROPHILS % 51.6 % (40.0-76.0); PLATELET 307 x1000/uL (130-400); RED BLOOD CELL COUNT 3.69 mill/uL (4.7-6.1)
[2019-03-18 05:04] LABS: CHLORIDE 105 mEq/L (98-107)
[2019-03-18 05:15] LABS: PHOSPHORUS 2.2 mg/dL (2.5-4.9)
[2019-03-18] MEDS ORDERED: POTASSIUM CHLORIDE 20MEQ TABLET SR PO NR ×2 (05:45→10:45)
[2019-03-18] MEDS: PANTOPRAZOLE 80 MG in SODIUM CHLORIDE 0.9% 100 ML IV SCH (05:47)
[2019-03-18] MEDS: PIPERACILLIN/TAZOBACTAM 3.375 G in DEXT 5% WATER 100 ML IV SCH ×3 (05:47→18:09)
[2019-03-18] MEDS: CARBIDOPA/LEVODOPA 25/250MG TABLET PO SCH ×3 (05:59→21:01)
[2019-03-18] MEDS: BLOOD SUGAR DIAGNOSTIC STRIP TEST SCH ×4 (05:59→23:20)
[2019-03-18] MEDS: INSULIN LISPRO 100 UNITS/ML SUBCUT SCH ×5 (06:00→23:20)
[2019-03-18] MEDS: VANCOMYCIN 1250MG in DEXTROSE 5% WATER 250ML IV SCH (06:12)
[2019-03-18] MEDS: DOCUSATE SODIUM SUGAR FREE 100MG/10ML UDC NG SCH ×2 (08:34→17:00)
[2019-03-18] MEDS: FLUTICASONE PROPIONATE 50MCG/SPRAY BOTTLE BOTHNSTRLS SCH ×2 (08:34→21:02)
[2019-03-18] MEDS: PREDNISONE 20MG TABLET PO SCH (08:35)
[2019-03-18] MEDS: BUDESONIDE 0.5MG/2ML NEB HHN SCH (08:56)
[2019-03-18] MEDS ORDERED: MAGNESIUM 2 G PREMIX 50 ML IV NR (11:30)
[2019-03-18] MEDS: ASPIRIN 81MG EC TABLET PO SCH (11:33)
[2019-03-18] MEDS: GUAIFENESIN 600MG ER TABLET PO SCH ×2 (14:44→21:01)
[2019-03-18] MEDS: ACETYLCYSTEINE 100MG/ML 10% VIAL 4ML INH SCH (17:02)
[2019-03-18] MEDS: DIGOXIN 500MCG/2ML AMP IV SCH (18:08)
[2019-03-18] MEDS: MONTELUKAST SODIUM 10MG TABLET PO SCH (18:09)
[2019-03-18] MEDS: ATORVASTATIN CALCIUM 20MG TABLET PO SCH (21:01)
[2019-03-18] MEDS: CARVEDILOL 3.125 MG TABLET PO SCH (21:02)
[2019-03-18] MEDS: INSULIN GLARGINE UD 100 UNITS/ML SYR SUBCUT SCH (23:22)
[2019-03-19] VITALS (14 sets, daily range): BP systolic 106–158; BP diastolic 68–90
[2019-03-19] MEDS: IPRATROPIUM/ALBUTEROL 0.5-3(2.5)MG/3ML NEB HHN SCH ×6 (00:23→20:50)
[2019-03-19 05:05] LABS: CHLORIDE 106 mEq/L (98-107)
[2019-03-19 05:11] LABS: PHOSPHORUS 1.9 mg/dL (2.5-4.9)
[2019-03-19 05:12] LABS: HEMATOCRIT. 30.1 % (42.0-52.0); HEMOGLOBIN. 10.2 g/dL (14.0-18.0); MEAN CORPUSCULAR HEMOGLOBIN 27.8 pg (28.0-32.0); MEAN CORPUSCULAR VOLUME 81.8 fL (80.0-94.0); MEAN PLATELET VOLUME 8.1 fl (7.4-10.4); PLATELET 300 x1000/uL (130-400); RED BLOOD CELL COUNT 3.68 mill/uL (4.7-6.1); RED CELL DISTRIBUTION WIDTH 19.1 % (11.6-14.6)
[2019-03-19] MEDS: CARBIDOPA/LEVODOPA 25/250MG TABLET PO SCH ×3 (05:13→21:21)
[2019-03-19] MEDS: BLOOD SUGAR DIAGNOSTIC STRIP TEST SCH ×4 (05:21→21:22)
[2019-03-19] MEDS: INSULIN LISPRO 100 UNITS/ML SUBCUT SCH ×4 (06:00→21:22)
[2019-03-19] MEDS: CARVEDILOL 3.125 MG TABLET PO SCH ×2 (08:43→20:31)
[2019-03-19] MEDS: GUAIFENESIN 600MG ER TABLET PO SCH ×2 (08:43→20:34)
[2019-03-19] MEDS: DOCUSATE SODIUM SUGAR FREE 100MG/10ML UDC NG SCH ×2 (08:44→17:00)
[2019-03-19] MEDS: PREDNISONE 20MG TABLET PO SCH (08:44)
[2019-03-19] MEDS: ASPIRIN 81MG EC TABLET PO SCH (08:45)
[2019-03-19] MEDS: FLUTICASONE PROPIONATE 50MCG/SPRAY BOTTLE BOTHNSTRLS SCH ×2 (08:48→20:35)
[2019-03-19] MEDS: ACETYLCYSTEINE 100MG/ML 10% VIAL 4ML INH SCH ×2 (09:00→16:00)
[2019-03-19] MEDS ORDERED: POTASSIUM CHLORIDE 20MEQ/PACKET PO SCH (09:40)
[2019-03-19 09:49] LABS: PLATELET ESTIMATE NORMAL
[2019-03-19] MEDS ORDERED: MAGNESIUM 4 G PREMIX 100 ML IV SCH (11:00)
[2019-03-19] MEDS ORDERED: POTASSIUM PHOS,M-BASIC-D-BASIC 30 MMOL in DEXT 5% WATER 500 ML IV SCH (11:00)
[2019-03-19] MEDS: DIGOXIN 125MCG TABLET PO SCH (17:26)
[2019-03-19] MEDS: MONTELUKAST SODIUM 10MG TABLET PO SCH (17:26)
[2019-03-19] MEDS: ATORVASTATIN CALCIUM 20MG TABLET PO SCH (20:34)
[2019-03-19] MEDS: INSULIN GLARGINE UD 100 UNITS/ML SYR SUBCUT SCH (21:25)
[2019-03-20] VITALS (11 sets, daily range): BP systolic 104–143; BP diastolic 56–84
[2019-03-20] MEDS: ACETYLCYSTEINE 100MG/ML 10% VIAL 4ML INH SCH ×4 (00:15→23:46)
[2019-03-20] MEDS: IPRATROPIUM/ALBUTEROL 0.5-3(2.5)MG/3ML NEB HHN SCH ×7 (00:15→23:46)
[2019-03-20] MEDS: INSULIN LISPRO 100 UNITS/ML SUBCUT SCH ×4 (05:30→21:13)
[2019-03-20] MEDS: BLOOD SUGAR DIAGNOSTIC STRIP TEST SCH ×4 (05:30→21:15)
[2019-03-20] MEDS: CARBIDOPA/LEVODOPA 25/250MG TABLET PO SCH ×3 (05:30→21:14)
[2019-03-20 06:21] LABS: CHLORIDE 104 mEq/L (98-107)
[2019-03-20 06:32] LABS: PHOSPHORUS 2.8 mg/dL (2.5-4.9)
[2019-03-20 06:36] LABS: HEMATOCRIT. 32.9 % (42.0-52.0); HEMOGLOBIN. 11.1 g/dL (14.0-18.0); MEAN CORPUSCULAR HEMOGLOBIN 27.5 pg (28.0-32.0); MEAN CORPUSCULAR VOLUME 81.6 fL (80.0-94.0); MEAN PLATELET VOLUME 8.4 fl (7.4-10.4); PLATELET 336 x1000/uL (130-400); RED BLOOD CELL COUNT 4.03 mill/uL (4.7-6.1); RED CELL DISTRIBUTION WIDTH 19.2 % (11.6-14.6)
[2019-03-20] MEDS: GUAIFENESIN 600MG ER TABLET PO SCH ×2 (09:19→21:13)
[2019-03-20] MEDS: PREDNISONE 20MG TABLET PO SCH (09:19)
[2019-03-20] MEDS: DOCUSATE SODIUM SUGAR FREE 100MG/10ML UDC NG SCH ×2 (09:19→17:00)
[2019-03-20] MEDS: ASPIRIN 81MG EC TABLET PO SCH (09:19)
[2019-03-20] MEDS: FLUTICASONE PROPIONATE 50MCG/SPRAY BOTTLE BOTHNSTRLS SCH ×2 (09:19→21:15)
[2019-03-20] MEDS: CARVEDILOL 3.125 MG TABLET PO SCH ×2 (09:20→21:14)
[2019-03-20 10:09] LABS: PLATELET ESTIMATE NORMAL
[2019-03-20] MEDS: ACETAMINOPHEN 325MG TABLET PO PRN ×2 (11:05→17:18)
[2019-03-20] MEDS: MONTELUKAST SODIUM 10MG TABLET PO SCH (17:12)
[2019-03-20] MEDS: DIGOXIN 125MCG TABLET PO SCH (17:12)
[2019-03-20] MEDS: APIXABAN 5 MG TABLET PO SCH (17:17)
[2019-03-20] MEDS ORDERED: BISACODYL 5MG TABLET PO NR (21:00)
[2019-03-20] MEDS: ATORVASTATIN CALCIUM 20MG TABLET PO SCH (21:14)
[2019-03-20] MEDS: INSULIN GLARGINE UD 100 UNITS/ML SYR SUBCUT SCH (21:14)
[2019-03-20] MEDS: DEXTROSE 50% WATER 50ML SYRINGE IV PRN (22:48)
[2019-03-21] VITALS (10 sets, daily range): BP systolic 87–146; BP diastolic 47–78
[2019-03-21] MEDS: METOCLOPRAMIDE HCL 10MG/2ML VIAL IV SCH ×4 (00:37→17:03)
[2019-03-21] MEDS: ACETAMINOPHEN 325MG TABLET PO PRN ×3 (00:54→20:16)
[2019-03-21] MEDS: IPRATROPIUM/ALBUTEROL 0.5-3(2.5)MG/3ML NEB HHN SCH ×5 (03:48→20:30)
[2019-03-21] MEDS: CARBIDOPA/LEVODOPA 25/250MG TABLET PO SCH ×4 (05:34→22:27)
[2019-03-21 07:21] LABS: BASOPHILS % 0.6 % (0.0-2.0); EOSINOPHILS % 1.4 % (0.0-5.0); HEMATOCRIT. 31.3 % (42.0-52.0); HEMOGLOBIN. 10.5 g/dL (14.0-18.0); LYMPHOCYTES % 26.5 % (20.0-50.0); MEAN CORPUSCULAR HEMOGLOBIN 27.4 pg (28.0-32.0); MEAN CORPUSCULAR VOLUME 81.8 fL (80.0-94.0); MEAN PLATELET VOLUME 8.1 fl (7.4-10.4); MONOCYTES % 14.4 % (2.0-8.0); NEUTROPHILS % 57.1 % (40.0-76.0); PLATELET 316 x1000/uL (130-400); RED BLOOD CELL COUNT 3.82 mill/uL (4.7-6.1); RED CELL DISTRIBUTION WIDTH 19.5 % (11.6-14.6)
[2019-03-21] MEDS: ACETYLCYSTEINE 100MG/ML 10% VIAL 4ML INH SCH ×2 (07:28→16:10)
[2019-03-21] MEDS: BLOOD SUGAR DIAGNOSTIC STRIP TEST SCH ×4 (07:30→21:04)
[2019-03-21] MEDS: INSULIN LISPRO 100 UNITS/ML SUBCUT SCH ×4 (07:30→21:00)
[2019-03-21 07:47] LABS: CHLORIDE 104 mEq/L (98-107)
[2019-03-21 07:54] LABS: PHOSPHORUS 2.4 mg/dL (2.5-4.9)
[2019-03-21] MEDS ORDERED: PREDNISONE 20MG TABLET PO SCH (09:00)
[2019-03-21] MEDS: APIXABAN 5 MG TABLET PO SCH ×2 (09:46→17:04)
[2019-03-21] MEDS: ASPIRIN 81MG EC TABLET PO SCH (09:46)
[2019-03-21] MEDS: GUAIFENESIN 600MG ER TABLET PO SCH ×2 (09:46→20:16)
[2019-03-21] MEDS: DOCUSATE SODIUM SUGAR FREE 100MG/10ML UDC NG SCH ×2 (09:46→17:04)
[2019-03-21] MEDS: CARVEDILOL 3.125 MG TABLET PO SCH ×2 (09:47→20:17)
[2019-03-21] MEDS ORDERED: BISACODYL 5MG TABLET PO NR (10:30)
[2019-03-21] MEDS ORDERED: MAGNESIUM 2 G PREMIX 50 ML IV NR (15:00)
[2019-03-21] MEDS ORDERED: POTASSIUM-SODIUM PHOSPHATE POWDER PACKET PO SCH (17:00)
[2019-03-21] MEDS: MONTELUKAST SODIUM 10MG TABLET PO SCH (17:03)
[2019-03-21] MEDS: DIGOXIN 125MCG TABLET PO SCH (17:03)
[2019-03-21] MEDS: ATORVASTATIN CALCIUM 20MG TABLET PO SCH (20:16)
== END 2019-03-21 23:05 | DRG 871 ==
LOC: ER 12:46 → 5EST 13:58 → EDBEDREQTM 14:18 → EDBEDREQ 14:18 → ENRESERV 03-05 07:40 → MICUNO 03-11 08:41 → 5EST 03-15 16:00
PROVIDERS: ADMIT Internal Medicine; ATTEND Internal Medicine
PROC: 5A1945Z Respiratory Ventilation, 24-96 Consecutive Hours (ICD-10-PCS; principal; 2019-03-11)
PROC: 0BH17EZ Insertion of Endotracheal Airway into Trachea, Via Natural or Artificial Opening (ICD-10-PCS; 2019-03-11)
PROC: 5A12012 Performance of Cardiac Output, Single, Manual (ICD-10-PCS; 2019-03-11)
PROC: 05HY33Z Insertion of Infusion Device into Upper Vein, Percutaneous Approach (ICD-10-PCS; 2019-03-11)
PROC: B54MZZZ Ultrasonography of Right Upper Extremity Veins (ICD-10-PCS; 2019-03-11)
DX: A41.52 Sepsis due to Pseudomonas (principal); E43 Unspecified severe protein-calorie malnutrition; R65.21 Severe sepsis with septic shock; G92 Toxic encephalopathy; I46.9 Cardiac arrest, cause unspecified; J96.02 Acute respiratory failure with hypercapnia; N17.0 Acute kidney failure with tubular necrosis; N39.0 Urinary tract infection, site not specified; J44.1 Chronic obstructive pulmonary disease with (acute) exacerbation; E87.0 Hyperosmolality and hypernatremia; I42.9 Cardiomyopathy, unspecified; I50.22 Chronic systolic (congestive) heart failure; K56.7 Ileus, unspecified; K92.2 Gastrointestinal hemorrhage, unspecified; G90.8 Other disorders of autonomic nervous system; B96.5 Pseudomonas (aeruginosa) (mallei) (pseudomallei) as the cause of diseases classified elsewhere; D50.0 Iron deficiency anemia secondary to blood loss (chronic); E11.21 Type 2 diabetes mellitus with diabetic nephropathy; E78.1 Pure hyperglyceridemia; E78.5 Hyperlipidemia, unspecified; E83.39 Other disorders of phosphorus metabolism; E83.42 Hypomagnesemia; E87.5 Hyperkalemia; F17.210 Nicotine dependence, cigarettes, uncomplicated; I11.0 Hypertensive heart disease with heart failure; I25.10 Atherosclerotic heart disease of native coronary artery without angina pectoris; G20 Parkinson's disease; I48.0 Paroxysmal atrial fibrillation; J00 Acute nasopharyngitis [common cold]; K40.90 Unilateral inguinal hernia, without obstruction or gangrene, not specified as recurrent; K52.9 Noninfective gastroenteritis and colitis, unspecified; M41.9 Scoliosis, unspecified; M94.0 Chondrocostal junction syndrome [Tietze]; Z79.01 Long term (current) use of anticoagulants; I25.2 Old myocardial infarction; Z79.4 Long term (current) use of insulin; Z95.5 Presence of coronary angioplasty implant and graft; Z98.1 Arthrodesis status; Z79.899 Other long term (current) drug therapy; Z79.84 Long term (current) use of oral hypoglycemic drugs; Z68.26 Body mass index [BMI] 26.0-26.9, adult
CPT/HCPCS: 36415; 36600; 70551; 71045; 74018; 74176; 76937; 80048; 80053; 80061; 80162; 80202; 80305; 80320; 81003; 82043; 82270; 82375; 82570; 82607; 82728; 82805; 82962; 83036; 83540; 83550; 83605; 83735; 83880; 83935; 84100; 84132; 84134; 84145; 84156; 84300; 84443; 84478; 84484; 85025; 85384; 86850; 86900; 86920; 87015; 87045; 87070; 87077; 87186; 87427; 87804; 89055; 92610; 93005; 93306; 93970; 94003; 94640; 96365; 96367; 96375; 97116; 97162; 97164; 97166; 97530; 99285; C1725; C9113; J0692; J1160; J1815; J2060; J2270; J2405; J2543; J2704; J2765; J2920; J3010; J3370; J3475; J3480; J3490; J7030; J7040; J7050; J7060; J7512; J7608; J7611; J7620; J7626; A4315; G0480

== ENCOUNTER 2019-03-21 23:08 | Inpatient (IN) | payer MEDICARE, MEDICAID ==
[~2019-03-21] VITALS: Ht 172.7 cm; Wt 79.2 kg
[2019-03-21 23:08] VITALS: BP 120/71
[~2019-03-21 23:08] MED LIST: ALBU18HF2 IH; AMAN100C16 PO; APIX5TAB PO; ASPI-1497 PO; ATOR20TA PO; CYCL10TA7 PO; DOXA2TAB2 MT; DUTA0.5C2 PO; ERGO500013 MT; FERR325T6 MT; GABA800T97 PO; INSU100I19 SQ; INSU100I33 SQ; LINA145C MT; METF-815 PO; METO-396 MT; MIRA25TA PO; MIRT15TA PO; MONT10TA24 MT; NITR0.4T49 SL; ROFL500T MT; STAR120 MT; [UNRECOGNIZED DRUG - CODE] MT
[2019-03-22] MEDS ORDERED: CLONIDINE 0.1MG TABLET PO PRN (00:15)
[2019-03-22] MEDS ORDERED: ONDANSETRON HCL 4MG/2ML INJ IV PRN (00:15)
[2019-03-22] MEDS ORDERED: SIMETHICONE 80MG TABLET CHEW PO PRN (00:15)
[2019-03-22] MEDS ORDERED: DEXTROSE 50% WATER 50ML SYRINGE IV PRN (00:15)
[2019-03-22] MEDS ORDERED: IPRATROPIUM/ALBUTEROL 0.5-3(2.5)MG/3ML NEB HHN PRN (00:15)
[2019-03-22] MEDS ORDERED: NA PHOS,M-B/NA PHOS,DI-BA ENEMA 118ML PR PRN (00:15)
[2019-03-22] MEDS: IPRATROPIUM/ALBUTEROL 0.5-3(2.5)MG/3ML NEB HHN SCH ×4 (04:13→21:33)
[2019-03-22 05:54] LABS: CHLORIDE 107 mEq/L (98-107)
[2019-03-22 06:00] LABS: PHOSPHORUS 2.7 mg/dL (2.5-4.9)
[2019-03-22] MEDS ORDERED: CARBIDOPA/LEVODOPA 25/100MG TABLET PO SCH (06:00)
[2019-03-22 06:09] LABS: BASOPHILS % 1.2 % (0.0-2.0); EOSINOPHILS % 2.5 % (0.0-5.0); HEMATOCRIT. 31.4 % (42.0-52.0); HEMOGLOBIN. 10.5 g/dL (14.0-18.0); LYMPHOCYTES % 31.3 % (20.0-50.0); MEAN CORPUSCULAR HEMOGLOBIN 27.3 pg (28.0-32.0); MEAN CORPUSCULAR VOLUME 81.7 fL (80.0-94.0); PLATELET 313 x1000/uL (130-400); RED BLOOD CELL COUNT 3.84 mill/uL (4.7-6.1); RED CELL DISTRIBUTION WIDTH 19.9 % (11.6-14.6)
[2019-03-22] MEDS: BLOOD SUGAR DIAGNOSTIC STRIP TEST SCH ×4 (06:27→20:39)
[2019-03-22] MEDS: METOCLOPRAMIDE HCL 5MG TABLET PO SCH ×4 (06:32→23:29)
[2019-03-22] MEDS: CARBIDOPA/LEVODOPA 25/250MG TABLET PO SCH ×3 (06:32→21:46)
[2019-03-22 08:00] VITALS: BP 133/69
[2019-03-22] MEDS: INSULIN LISPRO 100 UNITS/ML SUBCUT SCH ×4 (09:00→20:44)
[2019-03-22] MEDS: DOCUSATE SODIUM SUGAR FREE 100MG/10ML UDC PO SCH ×2 (09:00→17:00)
[2019-03-22] MEDS ORDERED: ASPIRIN 81MG TABLET PO SCH (09:00)
[2019-03-22] MEDS: ACETAMINOPHEN 325MG TABLET PO PRN ×2 (09:53→18:31)
[2019-03-22] MEDS: GUAIFENESIN 600MG ER TABLET PO SCH ×2 (09:53→20:39)
[2019-03-22] MEDS: ASPIRIN 81MG EC TABLET PO SCH (09:53)
[2019-03-22] MEDS: PREDNISONE 20MG TABLET PO SCH (09:54)
[2019-03-22] MEDS: CARVEDILOL 3.125 MG TABLET PO SCH ×2 (09:54→20:10)
[2019-03-22] MEDS: POTASSIUM-SODIUM PHOSPHATE POWDER PACKET PO SCH ×2 (09:54→17:32)
[2019-03-22] MEDS: APIXABAN 5 MG TABLET PO SCH ×2 (10:40→17:33)
[2019-03-22] MEDS: ACETYLCYSTEINE 100MG/ML 10% VIAL 4ML INH SCH (11:42)
[2019-03-22] MEDS ORDERED: DIPHENHYDRAMINE 50MG CAPSULE PO ONE (16:45)
[2019-03-22] MEDS: DIGOXIN 125MCG TABLET PO SCH (17:33)
[2019-03-22] MEDS: MONTELUKAST SODIUM 10MG TABLET PO SCH (17:33)
[2019-03-22 20:00] VITALS: BP 103/52
[2019-03-22] MEDS: ATORVASTATIN CALCIUM 20MG TABLET PO SCH (20:39)
[2019-03-22] MEDS: HYDROCODONE/ACETAMINOPHEN 5/325MG TABLET PO PRN (22:40)
[2019-03-23] MEDS: IPRATROPIUM/ALBUTEROL 0.5-3(2.5)MG/3ML NEB HHN SCH ×6 (01:05→20:05)
[2019-03-23] MEDS: ACETYLCYSTEINE 100MG/ML 10% VIAL 4ML INH SCH ×2 (01:05→09:17)
[2019-03-23] MEDS: CARBIDOPA/LEVODOPA 25/250MG TABLET PO SCH ×3 (05:42→21:49)
[2019-03-23] MEDS: METOCLOPRAMIDE HCL 5MG TABLET PO SCH ×3 (05:42→17:58)
[2019-03-23] MEDS: BLOOD SUGAR DIAGNOSTIC STRIP TEST SCH ×4 (05:42→21:00)
[2019-03-23] MEDS: HYDROCODONE/ACETAMINOPHEN 5/325MG TABLET PO PRN ×3 (05:52→21:55)
[2019-03-23] MEDS: INSULIN LISPRO 100 UNITS/ML SUBCUT SCH ×4 (06:12→21:00)
[2019-03-23 08:00] VITALS: BP 101/53
[2019-03-23] MEDS: DOCUSATE SODIUM SUGAR FREE 100MG/10ML UDC PO SCH ×2 (09:00→17:00)
[2019-03-23] MEDS: APIXABAN 5 MG TABLET PO SCH ×2 (10:04→17:58)
[2019-03-23] MEDS: ASPIRIN 81MG EC TABLET PO SCH (10:04)
[2019-03-23] MEDS: PREDNISONE 20MG TABLET PO SCH (10:04)
[2019-03-23] MEDS: POTASSIUM-SODIUM PHOSPHATE POWDER PACKET PO SCH ×2 (10:04→17:58)
[2019-03-23] MEDS: CARVEDILOL 3.125 MG TABLET PO SCH ×2 (10:05→21:50)
[2019-03-23] MEDS: GUAIFENESIN 600MG ER TABLET PO SCH ×2 (10:11→21:49)
[2019-03-23] MEDS: MONTELUKAST SODIUM 10MG TABLET PO SCH (17:58)
[2019-03-23] MEDS: DIGOXIN 125MCG TABLET PO SCH (17:58)
[2019-03-23 20:00] VITALS: BP 141/77
[2019-03-23] MEDS: ATORVASTATIN CALCIUM 20MG TABLET PO SCH (21:50)
[2019-03-24] MEDS: IPRATROPIUM/ALBUTEROL 0.5-3(2.5)MG/3ML NEB HHN SCH ×6 (00:03→21:04)
[2019-03-24] MEDS: ACETYLCYSTEINE 100MG/ML 10% VIAL 4ML INH SCH (00:03)
[2019-03-24] MEDS: METOCLOPRAMIDE HCL 5MG TABLET PO SCH ×4 (00:32→17:14)
[2019-03-24] MEDS: CARBIDOPA/LEVODOPA 25/250MG TABLET PO SCH ×3 (06:04→22:16)
[2019-03-24 08:00] VITALS: BP 122/80
[2019-03-24] MEDS: POTASSIUM-SODIUM PHOSPHATE POWDER PACKET PO SCH ×2 (08:53→17:13)
[2019-03-24] MEDS: ASPIRIN 81MG EC TABLET PO SCH (08:54)
[2019-03-24] MEDS: PREDNISONE 20MG TABLET PO SCH (08:54)
[2019-03-24] MEDS: CARVEDILOL 3.125 MG TABLET PO SCH ×2 (08:54→21:00)
[2019-03-24] MEDS: APIXABAN 5 MG TABLET PO SCH ×2 (08:54→17:14)
[2019-03-24] MEDS: DOCUSATE SODIUM SUGAR FREE 100MG/10ML UDC PO SCH ×2 (08:55→17:00)
[2019-03-24] MEDS: INSULIN LISPRO 100 UNITS/ML SUBCUT SCH (08:59)
[2019-03-24] MEDS: HYDROCODONE/ACETAMINOPHEN 5/325MG TABLET PO PRN ×2 (09:18→22:17)
[2019-03-24] MEDS: GUAIFENESIN 600MG ER TABLET PO SCH ×2 (10:16→22:16)
[2019-03-24] MEDS: BLOOD SUGAR DIAGNOSTIC STRIP TEST SCH ×3 (10:22→21:00)
[2019-03-24 16:52] VITALS: BP 100/57
[2019-03-24] MEDS: MONTELUKAST SODIUM 10MG TABLET PO SCH (17:13)
[2019-03-24] MEDS: METFORMIN HCL 500MG TABLET PO SCH (17:13)
[2019-03-24] MEDS: DIGOXIN 125MCG TABLET PO SCH (17:14)
[2019-03-24 20:00] VITALS: BP 111/65
[2019-03-24] MEDS: ATORVASTATIN CALCIUM 20MG TABLET PO SCH (22:16)
[2019-03-25] MEDS: METOCLOPRAMIDE HCL 5MG TABLET PO SCH ×4 (00:28→17:23)
[2019-03-25] MEDS: IPRATROPIUM/ALBUTEROL 0.5-3(2.5)MG/3ML NEB HHN SCH ×5 (01:43→20:31)
[2019-03-25] MEDS: CARBIDOPA/LEVODOPA 25/250MG TABLET PO SCH ×3 (05:26→21:08)
[2019-03-25] MEDS: BLOOD SUGAR DIAGNOSTIC STRIP TEST SCH ×4 (05:36→21:17)
[2019-03-25] MEDS: HYDROCODONE/ACETAMINOPHEN 5/325MG TABLET PO PRN ×3 (06:01→21:09)
[2019-03-25 08:00] VITALS: BP 101/59
[2019-03-25] MEDS: CARVEDILOL 3.125 MG TABLET PO SCH ×2 (09:00→21:08)
[2019-03-25] MEDS: DOCUSATE SODIUM SUGAR FREE 100MG/10ML UDC PO SCH ×2 (09:00→17:00)
[2019-03-25] MEDS: ASPIRIN 81MG EC TABLET PO SCH (10:26)
[2019-03-25] MEDS: GUAIFENESIN 600MG ER TABLET PO SCH ×2 (10:26→21:08)
[2019-03-25] MEDS: METFORMIN HCL 500MG TABLET PO SCH ×2 (10:26→17:23)
[2019-03-25] MEDS: APIXABAN 5 MG TABLET PO SCH ×2 (10:27→17:23)
[2019-03-25] MEDS: PREDNISONE 20MG TABLET PO SCH (10:27)
[2019-03-25] MEDS: POTASSIUM-SODIUM PHOSPHATE POWDER PACKET PO SCH ×2 (10:27→17:23)
[2019-03-25] MEDS: MONTELUKAST SODIUM 10MG TABLET PO SCH (17:23)
[2019-03-25] MEDS: DIGOXIN 125MCG TABLET PO SCH (17:23)
[2019-03-25 20:00] VITALS: BP 124/76
[2019-03-25] MEDS: ATORVASTATIN CALCIUM 20MG TABLET PO SCH (21:08)
[2019-03-26] MEDS: IPRATROPIUM/ALBUTEROL 0.5-3(2.5)MG/3ML NEB HHN SCH ×6 (00:21→21:57)
[2019-03-26] MEDS: METOCLOPRAMIDE HCL 5MG TABLET PO SCH ×4 (01:00→17:14)
[2019-03-26] MEDS: CARBIDOPA/LEVODOPA 25/250MG TABLET PO SCH ×3 (05:20→21:22)
[2019-03-26] MEDS: BLOOD SUGAR DIAGNOSTIC STRIP TEST SCH ×4 (05:52→21:22)
[2019-03-26] MEDS: HYDROCODONE/ACETAMINOPHEN 5/325MG TABLET PO PRN ×3 (08:18→22:19)
[2019-03-26 08:22] VITALS: BP 131/68
[2019-03-26] MEDS: DOCUSATE SODIUM SUGAR FREE 100MG/10ML UDC PO SCH ×2 (09:00→16:57)
[2019-03-26] MEDS: CARVEDILOL 3.125 MG TABLET PO SCH ×2 (09:21→21:22)
[2019-03-26] MEDS: APIXABAN 5 MG TABLET PO SCH ×2 (09:22→16:55)
[2019-03-26] MEDS: ASPIRIN 81MG EC TABLET PO SCH (09:22)
[2019-03-26] MEDS: POTASSIUM-SODIUM PHOSPHATE POWDER PACKET PO SCH ×2 (09:22→16:55)
[2019-03-26] MEDS: METFORMIN HCL 500MG TABLET PO SCH ×2 (09:22→16:55)
[2019-03-26] MEDS: GUAIFENESIN 600MG ER TABLET PO SCH ×2 (09:22→22:15)
[2019-03-26] MEDS: PREDNISONE 20MG TABLET PO SCH (09:22)
[2019-03-26] MEDS: LIDOCAINE 5% PATCH TOP PRN (12:21)
[2019-03-26] MEDS: MONTELUKAST SODIUM 10MG TABLET PO SCH (16:55)
[2019-03-26] MEDS: DIGOXIN 125MCG TABLET PO SCH (17:14)
[2019-03-26 20:00] VITALS: BP 113/62
[2019-03-26] MEDS ORDERED: METO-396 PO (20:48)
[2019-03-26] MEDS ORDERED: FLUT1BLS3 INH (20:50)
[2019-03-26] MEDS ORDERED: CARB1TAB11 MT (20:51)
[2019-03-26] MEDS ORDERED: NITR0.4T SL (20:51)
[2019-03-26] MEDS ORDERED: MIRT45TA83 PO (20:52)
[2019-03-26] MEDS ORDERED: ALBU18HF2 IH (20:53)
[2019-03-26] MEDS ORDERED: THE3 PO (20:54)
[2019-03-26] MEDS ORDERED: GABA-290 PO (20:54)
[2019-03-26] MEDS ORDERED: OMEP40CA12 PO (20:55)
[2019-03-26] MEDS ORDERED: ASPI-1497 PO (20:55)
[2019-03-26] MEDS ORDERED: FERR325T6 PO (20:56)
[2019-03-26] MEDS ORDERED: LISI2.5T47 PO (20:56)
[2019-03-26] MEDS ORDERED: ATOR-2 PO (21:00)
[2019-03-26] MEDS ORDERED: TAMS-11 PO (21:02)
[2019-03-26] MEDS: ATORVASTATIN CALCIUM 20MG TABLET PO SCH (21:22)
[2019-03-27] MEDS: IPRATROPIUM/ALBUTEROL 0.5-3(2.5)MG/3ML NEB HHN SCH ×6 (00:56→20:14)
[2019-03-27] MEDS: CARBIDOPA/LEVODOPA 25/250MG TABLET PO SCH ×3 (05:48→21:22)
[2019-03-27] MEDS: BLOOD SUGAR DIAGNOSTIC STRIP TEST SCH (05:48)
[2019-03-27] MEDS: METOCLOPRAMIDE HCL 5MG TABLET PO SCH ×4 (05:48→17:25)
[2019-03-27 07:35] LABS: BASOPHILS % 0.4 % (0.0-2.0); EOSINOPHILS % 4.8 % (0.0-5.0); HEMATOCRIT. 31.1 % (42.0-52.0); HEMOGLOBIN. 10.1 g/dL (14.0-18.0); LYMPHOCYTES % 28.3 % (20.0-50.0); MEAN CORPUSCULAR HEMOGLOBIN 27.5 pg (28.0-32.0); MEAN CORPUSCULAR VOLUME 84.4 fL (80.0-94.0); MONOCYTES % 11.9 % (2.0-8.0); NEUTROPHILS % 54.6 % (40.0-76.0); PLATELET 309 x1000/uL (130-400); RED BLOOD CELL COUNT 3.69 mill/uL (4.7-6.1); RED CELL DISTRIBUTION WIDTH 19.7 % (11.6-14.6)
[2019-03-27 08:00] VITALS: BP 110/69
[2019-03-27 08:27] LABS: CHLORIDE 107 mEq/L (98-107)
[2019-03-27] MEDS: DOCUSATE SODIUM SUGAR FREE 100MG/10ML UDC PO SCH ×3 (09:00→17:00)
[2019-03-27] MEDS: POTASSIUM-SODIUM PHOSPHATE POWDER PACKET PO SCH ×2 (09:28→17:51)
[2019-03-27] MEDS: GUAIFENESIN 600MG ER TABLET PO SCH ×2 (09:29→21:22)
[2019-03-27] MEDS: APIXABAN 5 MG TABLET PO SCH ×2 (09:29→17:25)
[2019-03-27] MEDS: METFORMIN HCL 500MG TABLET PO SCH ×2 (09:29→17:24)
[2019-03-27] MEDS: PREDNISONE 20MG TABLET PO SCH (09:29)
[2019-03-27] MEDS: ASPIRIN 81MG EC TABLET PO SCH (09:29)
[2019-03-27] MEDS: CARVEDILOL 3.125 MG TABLET PO SCH ×2 (09:30→21:23)
[2019-03-27] MEDS: TRAMADOL 50MG TABLET PO PRN ×2 (09:32→22:38)
[2019-03-27] MEDS: HYDROCODONE/ACETAMINOPHEN 5/325MG TABLET PO PRN (14:06)
[2019-03-27] MEDS ORDERED: POTASSIUM CHLORIDE 20MEQ/PACKET PO SCH (14:30)
[2019-03-27] MEDS: MONTELUKAST SODIUM 10MG TABLET PO SCH (17:25)
[2019-03-27] MEDS: DIGOXIN 125MCG TABLET PO SCH (17:25)
[2019-03-27 20:00] VITALS: BP 123/66
[2019-03-27] MEDS: ATORVASTATIN CALCIUM 20MG TABLET PO SCH (21:22)
[2019-03-27] MEDS: LIDOCAINE 5% PATCH TOP PRN (22:38)
[2019-03-28] MEDS: METOCLOPRAMIDE HCL 5MG TABLET PO SCH ×4 (00:15→17:00)
[2019-03-28] MEDS: IPRATROPIUM/ALBUTEROL 0.5-3(2.5)MG/3ML NEB HHN SCH ×6 (04:15→19:55)
[2019-03-28] MEDS: CARBIDOPA/LEVODOPA 25/250MG TABLET PO SCH ×3 (05:17→21:41)
[2019-03-28 07:55] VITALS: BP 112/66
[2019-03-28] MEDS: TRAMADOL 50MG TABLET PO PRN (07:57)
[2019-03-28] MEDS: PREDNISONE 20MG TABLET PO SCH (08:02)
[2019-03-28] MEDS: GUAIFENESIN 600MG ER TABLET PO SCH ×2 (08:02→21:41)
[2019-03-28] MEDS: METFORMIN HCL 500MG TABLET PO SCH ×2 (08:02→16:12)
[2019-03-28] MEDS: POTASSIUM-SODIUM PHOSPHATE POWDER PACKET PO SCH ×2 (08:03→16:12)
[2019-03-28] MEDS: APIXABAN 5 MG TABLET PO SCH ×2 (08:03→16:12)
[2019-03-28] MEDS: ASPIRIN 81MG EC TABLET PO SCH (08:03)
[2019-03-28] MEDS: CARVEDILOL 3.125 MG TABLET PO SCH ×2 (08:03→21:00)
[2019-03-28] MEDS: DOCUSATE SODIUM SUGAR FREE 100MG/10ML UDC PO SCH ×2 (08:03→16:13)
[2019-03-28 08:20] LABS: BASOPHILS % 1.4 % (0.0-2.0); EOSINOPHILS % 4.7 % (0.0-5.0); HEMATOCRIT. 31.4 % (42.0-52.0); HEMOGLOBIN. 10.3 g/dL (14.0-18.0); LYMPHOCYTES % 34.4 % (20.0-50.0); MEAN CORPUSCULAR HEMOGLOBIN 27.5 pg (28.0-32.0); MEAN CORPUSCULAR VOLUME 83.6 fL (80.0-94.0); MEAN PLATELET VOLUME 7.7 fl (7.4-10.4); MONOCYTES % 11.2 % (2.0-8.0); NEUTROPHILS % 48.3 % (40.0-76.0); PLATELET 316 x1000/uL (130-400); RED BLOOD CELL COUNT 3.75 mill/uL (4.7-6.1)
[2019-03-28 08:21] LABS: CHLORIDE 106 mEq/L (98-107)
[2019-03-28] MEDS: HYDROCODONE/ACETAMINOPHEN 5/325MG TABLET PO PRN (14:07)
[2019-03-28] MEDS: MONTELUKAST SODIUM 10MG TABLET PO SCH (16:12)
[2019-03-28] MEDS: DIGOXIN 125MCG TABLET PO SCH (17:00)
[2019-03-28] MEDS: LIDOCAINE 5% PATCH TOP PRN (18:45)
[2019-03-28 20:00] VITALS: BP 106/54
[2019-03-28] MEDS: ATORVASTATIN CALCIUM 20MG TABLET PO SCH (21:41)
[2019-03-29] MEDS: IPRATROPIUM/ALBUTEROL 0.5-3(2.5)MG/3ML NEB HHN SCH ×6 (00:15→20:46)
[2019-03-29] MEDS: METOCLOPRAMIDE HCL 5MG TABLET PO SCH ×5 (00:58→23:36)
[2019-03-29] MEDS: CARBIDOPA/LEVODOPA 25/250MG TABLET PO SCH ×3 (05:35→21:19)
[2019-03-29 07:06] LABS: BASOPHILS % 2.3 % (0.0-2.0); EOSINOPHILS % 4.9 % (0.0-5.0); HEMATOCRIT. 31.4 % (42.0-52.0); HEMOGLOBIN. 10.2 g/dL (14.0-18.0); LYMPHOCYTES % 28.6 % (20.0-50.0); MEAN CORPUSCULAR HEMOGLOBIN 27.6 pg (28.0-32.0); MEAN CORPUSCULAR VOLUME 84.5 fL (80.0-94.0); MEAN PLATELET VOLUME 7.9 fl (7.4-10.4); MONOCYTES % 11.6 % (2.0-8.0); NEUTROPHILS % 52.6 % (40.0-76.0); PLATELET 311 x1000/uL (130-400); RED BLOOD CELL COUNT 3.71 mill/uL (4.7-6.1); RED CELL DISTRIBUTION WIDTH 20.2 % (11.6-14.6)
[2019-03-29 07:33] LABS: CHLORIDE 105 mEq/L (98-107)
[2019-03-29 08:04] VITALS: BP 104/51
[2019-03-29] MEDS: GUAIFENESIN 600MG ER TABLET PO SCH ×2 (08:54→21:19)
[2019-03-29] MEDS: METFORMIN HCL 500MG TABLET PO SCH ×2 (08:54→17:15)
[2019-03-29] MEDS: POTASSIUM-SODIUM PHOSPHATE POWDER PACKET PO SCH ×2 (08:54→17:15)
[2019-03-29] MEDS: ASPIRIN 81MG EC TABLET PO SCH (08:54)
[2019-03-29] MEDS: APIXABAN 5 MG TABLET PO SCH ×2 (08:54→17:15)
[2019-03-29] MEDS: CARVEDILOL 3.125 MG TABLET PO SCH ×2 (08:55→21:19)
[2019-03-29] MEDS: PREDNISONE 20MG TABLET PO SCH (09:00)
[2019-03-29] MEDS: DOCUSATE SODIUM SUGAR FREE 100MG/10ML UDC PO SCH ×2 (09:00→17:00)
[2019-03-29 17:14] VITALS: BP 115/75
[2019-03-29] MEDS: MONTELUKAST SODIUM 10MG TABLET PO SCH (17:15)
[2019-03-29] MEDS: DIGOXIN 125MCG TABLET PO SCH (17:15)
[2019-03-29] MEDS: HYDROCODONE/ACETAMINOPHEN 5/325MG TABLET PO PRN (17:22)
[2019-03-29] MEDS: LIDOCAINE 5% PATCH TOP PRN (19:42)
[2019-03-29 20:00] VITALS: BP 111/72
[2019-03-29] MEDS: ATORVASTATIN CALCIUM 20MG TABLET PO SCH (21:19)
[2019-03-30] MEDS: IPRATROPIUM/ALBUTEROL 0.5-3(2.5)MG/3ML NEB HHN SCH ×6 (00:48→20:32)
[2019-03-30] MEDS: METOCLOPRAMIDE HCL 5MG TABLET PO SCH ×4 (05:45→23:21)
[2019-03-30] MEDS: CARBIDOPA/LEVODOPA 25/250MG TABLET PO SCH ×3 (05:45→21:17)
[2019-03-30 08:14] VITALS: BP 105/58
[2019-03-30] MEDS: DOCUSATE SODIUM SUGAR FREE 100MG/10ML UDC PO SCH ×2 (09:00→17:00)
[2019-03-30] MEDS: CARVEDILOL 3.125 MG TABLET PO SCH ×2 (09:00→20:14)
[2019-03-30] MEDS: METFORMIN HCL 500MG TABLET PO SCH ×2 (09:01→17:01)
[2019-03-30] MEDS: ASPIRIN 81MG EC TABLET PO SCH (09:01)
[2019-03-30] MEDS: GUAIFENESIN 600MG ER TABLET PO SCH ×2 (09:01→20:15)
[2019-03-30] MEDS: POTASSIUM-SODIUM PHOSPHATE POWDER PACKET PO SCH ×2 (09:01→17:01)
[2019-03-30] MEDS: PREDNISONE 20MG TABLET PO SCH (09:01)
[2019-03-30] MEDS: APIXABAN 5 MG TABLET PO SCH ×2 (09:48→17:34)
[2019-03-30] MEDS ORDERED: POTASSIUM CHLORIDE 20MEQ TABLET SR PO NR (12:00)
[2019-03-30] MEDS: BLOOD SUGAR DIAGNOSTIC STRIP TEST SCH ×2 (16:25→20:16)
[2019-03-30 16:44] VITALS: BP_SYST 121; BP_SYST 123; BP_DIAS 58; BP_DIAS 74
[2019-03-30] MEDS: MONTELUKAST SODIUM 10MG TABLET PO SCH (17:01)
[2019-03-30] MEDS: DIGOXIN 125MCG TABLET PO SCH (17:01)
[2019-03-30 20:00] VITALS: BP 135/83
[2019-03-30] MEDS: LIDOCAINE 5% PATCH TOP PRN (20:13)
[2019-03-30] MEDS: ATORVASTATIN CALCIUM 20MG TABLET PO SCH (20:15)
[2019-03-31] MEDS: IPRATROPIUM/ALBUTEROL 0.5-3(2.5)MG/3ML NEB HHN SCH ×6 (01:05→21:25)
[2019-03-31] MEDS: METOCLOPRAMIDE HCL 5MG TABLET PO SCH ×4 (05:54→23:34)
[2019-03-31] MEDS: BLOOD SUGAR DIAGNOSTIC STRIP TEST SCH ×4 (05:54→21:12)
[2019-03-31] MEDS: CARBIDOPA/LEVODOPA 25/250MG TABLET PO SCH ×3 (05:54→21:25)
[2019-03-31 07:52] LABS: BASOPHILS % 1.1 % (0.0-2.0); HEMOGLOBIN. 10.8 g/dL (14.0-18.0); MEAN CORPUSCULAR HEMOGLOBIN 27.7 pg (28.0-32.0); MEAN CORPUSCULAR VOLUME 84.4 fL (80.0-94.0); MEAN PLATELET VOLUME 7.8 fl (7.4-10.4); MONOCYTES % 9.1 % (2.0-8.0); NEUTROPHILS % 52.8 % (40.0-76.0); PLATELET 329 x1000/uL (130-400); RED BLOOD CELL COUNT 3.91 mill/uL (4.7-6.1); RED CELL DISTRIBUTION WIDTH 19.5 % (11.6-14.6)
[2019-03-31 07:53] LABS: CHLORIDE 107 mEq/L (98-107)
[2019-03-31 08:00] VITALS: BP 128/81
[2019-03-31] MEDS: PREDNISONE 20MG TABLET PO SCH (08:33)
[2019-03-31] MEDS: METFORMIN HCL 500MG TABLET PO SCH ×2 (08:33→17:33)
[2019-03-31] MEDS: ASPIRIN 81MG EC TABLET PO SCH (08:33)
[2019-03-31] MEDS: POTASSIUM-SODIUM PHOSPHATE POWDER PACKET PO SCH ×2 (08:33→17:33)
[2019-03-31] MEDS: CARVEDILOL 3.125 MG TABLET PO SCH ×2 (08:34→21:25)
[2019-03-31] MEDS: GUAIFENESIN 600MG ER TABLET PO SCH ×2 (08:34→21:25)
[2019-03-31] MEDS: DOCUSATE SODIUM SUGAR FREE 100MG/10ML UDC PO SCH ×2 (08:37→17:00)
[2019-03-31] MEDS: APIXABAN 5 MG TABLET PO SCH ×2 (10:47→17:33)
[2019-03-31] MEDS: MONTELUKAST SODIUM 10MG TABLET PO SCH (17:32)
[2019-03-31] MEDS: DIGOXIN 125MCG TABLET PO SCH (17:33)
[2019-03-31 20:00] VITALS: BP 126/79
[2019-03-31] MEDS: ATORVASTATIN CALCIUM 20MG TABLET PO SCH (21:25)
[2019-04-01] MEDS: IPRATROPIUM/ALBUTEROL 0.5-3(2.5)MG/3ML NEB HHN SCH ×5 (01:08→16:00)
[2019-04-01] MEDS: METOCLOPRAMIDE HCL 5MG TABLET PO SCH ×3 (06:09→17:03)
[2019-04-01] MEDS: CARBIDOPA/LEVODOPA 25/250MG TABLET PO SCH ×2 (06:09→15:08)
[2019-04-01] MEDS: BLOOD SUGAR DIAGNOSTIC STRIP TEST SCH ×3 (06:10→16:49)
[2019-04-01 08:00] VITALS: BP 136/83
[2019-04-01] MEDS ORDERED: DIGO-26 PO (08:32)
[2019-04-01] MEDS ORDERED: MONT10TA21 PO (08:32)
[2019-04-01] MEDS ORDERED: METF500T PO (08:32)
[2019-04-01] MEDS ORDERED: COR3 PO (08:32)
[2019-04-01] MEDS: DOCUSATE SODIUM SUGAR FREE 100MG/10ML UDC PO SCH ×2 (09:00→16:43)
[2019-04-01] MEDS: POTASSIUM-SODIUM PHOSPHATE POWDER PACKET PO SCH ×2 (10:12→16:41)
[2019-04-01] MEDS: GUAIFENESIN 600MG ER TABLET PO SCH (10:12)
[2019-04-01] MEDS: METFORMIN HCL 500MG TABLET PO SCH ×2 (10:12→16:41)
[2019-04-01] MEDS: PREDNISONE 20MG TABLET PO SCH (10:13)
[2019-04-01] MEDS: CARVEDILOL 3.125 MG TABLET PO SCH (10:13)
[2019-04-01] MEDS: ASPIRIN 81MG EC TABLET PO SCH (10:13)
[2019-04-01] MEDS: APIXABAN 5 MG TABLET PO SCH ×2 (10:34→16:41)
[2019-04-01] MEDS: MONTELUKAST SODIUM 10MG TABLET PO SCH (16:41)
[2019-04-01] MEDS: DIGOXIN 125MCG TABLET PO SCH (17:03)
[2019-04-01 17:45] VITALS: BP 136/83
== END 2019-04-01 18:50 | disposition home health service (06) | DRG 189 ==
PROVIDERS: ADMIT Psychiatry & Neurology Neurology; ATTEND Internal Medicine
DX: J96.02 Acute respiratory failure with hypercapnia (principal); A41.9 Sepsis, unspecified organism; G92 Toxic encephalopathy; E43 Unspecified severe protein-calorie malnutrition; R65.21 Severe sepsis with septic shock; I42.9 Cardiomyopathy, unspecified; I48.20 Chronic atrial fibrillation, unspecified; I50.22 Chronic systolic (congestive) heart failure; J44.1 Chronic obstructive pulmonary disease with (acute) exacerbation; K56.7 Ileus, unspecified; N17.9 Acute kidney failure, unspecified; N39.0 Urinary tract infection, site not specified; E87.2 Acidosis; B96.89 Other specified bacterial agents as the cause of diseases classified elsewhere; E11.9 Type 2 diabetes mellitus without complications; D50.9 Iron deficiency anemia, unspecified; R53.81 Other malaise; E87.5 Hyperkalemia; I11.0 Hypertensive heart disease with heart failure; I25.10 Atherosclerotic heart disease of native coronary artery without angina pectoris; K52.9 Noninfective gastroenteritis and colitis, unspecified; M41.9 Scoliosis, unspecified; I48.0 Paroxysmal atrial fibrillation; M19.90 Unspecified osteoarthritis, unspecified site; R80.9 Proteinuria, unspecified; G90.8 Other disorders of autonomic nervous system; G20 Parkinson's disease; B96.5 Pseudomonas (aeruginosa) (mallei) (pseudomallei) as the cause of diseases classified elsewhere; F32.9 Major depressive disorder, single episode, unspecified; F41.9 Anxiety disorder, unspecified; I25.5 Ischemic cardiomyopathy; Z87.01 Personal history of pneumonia (recurrent); Z87.891 Personal history of nicotine dependence; Z95.5 Presence of coronary angioplasty implant and graft; Z98.1 Arthrodesis status; Z79.01 Long term (current) use of anticoagulants; Z79.899 Other long term (current) drug therapy; Z79.4 Long term (current) use of insulin
CPT/HCPCS: 36415; 80048; 82962; 83735; 84100; 85025; 92523; 92610; 94640; 97110; 97112; 97116; 97162; 97166; 97530; 97535; J1815; J7512; J7608; J7620; J8597